=== PATIENT | female | born 1965 | race African-American/Black ===

== ENCOUNTER 2017-05-02 13:39 | Emergency (ER) | payer BC, SELFPAY ==
[2017-05-02 13:48] VITALS: BP 188/104; PULSE 100; RESP 20; TEMP 36.6; O2SAT 97; BMI 29.2
--- NOTE | 2017-05-02 14:11 | HMH.EDUTC ---
[facility] [place] Impression: Elevated blood pressure reading Disposition: Home, Self-Care Condition on Discharge: Good Instructions: Hypertension (Alternative Therapy), High Blood Pressure (Hypertension) (Alternative Therapy) Additional Instructions: Follow up with family doctor tomorrow as schedules If patient blood pressure increases again and she is having headache, blurred vision, slurred speech or any life threatening complaint or worsening of symptom Go straight to ER Return if needed Referrals: Giovany Burleson MD [Primary Care Provider] - 05/03/17 (Follow up tomorrow as scheduled) Time of Disposition: 14:33 Medical Decision Making Vital Signs: 05/02/17 13:48 Temperature 97.8 F Temperature Source Temporal Artery Scan Pulse Rate [Right] 100 H Respiratory Rate 20 Blood Pressure [Right Arm] 188/104 Blood Pressure Mean [Right Arm] 132 Blood Pressure Source [Right Arm] Automatic Cuff Blood Pressure Position [Right Arm] Sitting 02 Sat by Pulse Oximetry 97 Oxygen Delivery Method Room Air - Tommie Inquiry Pt receiving controlled substance: No Tommie was queried for this patient: No - Reevaluation(s) Reevaluation #1: Patient state that she is asymptomatic, informed them as long as she was asymptomatic to let family doctor start her on medication and monitor it closely That is she began to have symptoms or blood pressure continued to rise to bring her back or go straight to ER BP lowering at this time 174/99 still denies any complaints [facility] [place] - General Stated complaint: poss high blood pressure Mode of Arrival: Ambulatory Source of Information: Patient Limitations: No Limitations Description of Symptoms (Recalled from Triage Doc. by RN): FEELS BP MAY BE ELEVATED, APPT WITH MD TOMORROW FOR BP EVAL HEENT Symptoms (Recalled from RN notes): No Resp Symptoms (Recalled from RN notes): No Skin Symptoms (Recalled from RN notes): No MS Symptoms (Recalled from RN notes): No Functional Status (Recalled from RN notes): N - History of Present Illness Provider Complaint: Family state that they have been checking her blood pressure at home States that they have noticed that the last few times they have checked it her blood pressure has been high State that they checked it earlier today with a wrist blood pressure cuff and it was 194/120 so they brought her in to get her checked - Related Data Previous Rx's Medication Instructions Recorded donepezil 5 mg tablet 5 mg PO QHS 30 Days #30 tab 04/28/17 levetiracetam ER 500 mg 1,500 mg PO QHS 30 Days #90 tab 04/28/17 tablet,extended release 24 hr Allergies Allergy/AdvReac Type Severity Reaction Status Date / Time PEACHES Allergy Intermediate I-RASH Uncoded 04/26/17 16:43 - Worker's Comp Is this a Worker's Comp case?: No [facility] History I have reviewed the patient's past medical history: Yes Medical History: Reports:: Dementia, Diabetes Mellitus Type 2, Hypertension, Seizures Other Surgeries: Yes: Hysterectomy-Partial - *Social History Smoking Status: Never smoker Alcohol Intake: never Substance Use Type: denies use Occupational Status: unemployed Housing: house Household Members: family - Psychiatric History Expresses thoughts of harming self/others: None Suicide Plan Description: No Plan *Family Hx:: Cancer ROS Obtained: Yes All systems reviewed & no additional complaints - Cardiovascular Cardiovascular: Denies chest pain, Denies dyspnea, Denies edema, Denies palpitations - Respiratory Respiratory: No dyspnea Physical Exam - General General appearance: alert, in no apparent distress - ENT ENT exam: Present: normal exam, normal oropharynx, mucous membranes moist, TM's normal bilaterally, normal external ear exam - Respiratory Respiratory exam: Present: normal lung sounds bilaterally. Absent: respiratory distress - Cardiovascular Cardiovascular exam: Present: regular rate, normal rhythm. Absent: JVD - Abdominal Exam
--- NOTE | 2017-05-02 14:20 | ED_ITS ---
[facility] – [place] Clinical Impression: Elevated blood pressure reading Disposition: Home, Self-Care Condition on Discharge: Good Instructions: Hypertension (Alternative Therapy), High Blood Pressure ( Hypertension) (Alternative Therapy) Additional Instructions: Follow up with family doctor tomorrow as schedules If patient blood pressure increases again and she is having headache, blurred vision, slurred speech or any life threatening complaint or worsening of symptom Go straight to ER Return if needed Referrals: Giovany Burleson MD [Primary Care Provider] - 05/03/17 (Follow up tomorrow as scheduled) Time of Disposition: 14:33 Medical Decision Making Vital Signs: 05/02/17 13:48 Temperature 97.8 F Temperature Source Temporal Artery Scan Pulse Rate [Right] 100 H Respiratory Rate 20 Blood Pressure [Right Arm] 188/104 Blood Pressure Mean [Right Arm] 132 Blood Pressure Source [Right Arm] Automatic Cuff Blood Pressure Position [Right Arm] Sitting 02 Sat by Pulse Oximetry 97 Oxygen Delivery Method Room Air - Tommie Inquiry Pt receiving controlled substance: No Tommie was queried for this patient: No - Reevaluation(s) Reevaluation #1: Patient state that she is asymptomatic, informed them as long as she was asymptomatic to let family doctor start her on medication and monitor it closely That is she began to have symptoms or blood pressure continued to rise to bring her back or go straight to ER BP lowering at this time 174/99 still denies any complaints [facility] [place]PI - General Stated complaint: poss high blood pressure Mode of Arrival: Ambulatory Source of Information: Patient Limitations: No Limitations Description of Symptoms (Recalled from Triage Doc. by RN): FEELS BP MAY BE ELEVATED, APPT WITH MD TOMORROW FOR BP EVAL HEENT Symptoms (Recalled from RN notes): No Resp Symptoms (Recalled from RN notes): No Skin Symptoms (Recalled from RN notes): No MS Symptoms (Recalled from RN notes): No Functional Status (Recalled from RN notes): N - History of Present Illness Provider Complaint: Family state that they have been checking her blood pressure at home States that they have noticed that the last few times they have checked it her blood pressure has been high State that they checked it earlier today with a wrist blood pressure cuff and it was 194/120 so they brought her in to get her checked - Related Data Previous Rx's Medication Instructions Recorded donepezil 5 mg tablet 5 mg PO QHS 30 Days #30 tab 04/28/17 levetiracetam ER 500 mg 1,500 mg PO QHS 30 Days #90 tab 04/28/17 tablet,extended release 24 hr Allergies Allergy/AdvReac Type Severity Reaction Status Date / Time PEACHES Allergy Intermediate I-RASH Uncoded 04/26/17 16:43 - Worker's Comp Is this a Worker's Comp case?: No [facility] History I have reviewed the patient's past medical history: Yes Medical History: Reports:: Dementia, Diabetes Mellitus Type 2, Hypertension, Seizures Other Surgeries: Yes: Hysterectomy-Partial - *Social History Smoking Status: Never smoker Alcohol Intake: never Substance Use Type: denies use Occupational Status: unemployed Housing: house Household Members: family - Psychiatric History Expresses thoughts of harming self/others: None Suicide Plan Description: No Plan *Family Hx:: Cancer ROS Obtained: Yes All systems reviewed & no
[2017-05-02 14:26] VITALS: BP 178/99; PULSE 78; RESP 20; TEMP 36.8; O2SAT 99
== END 2017-05-02 14:34 | disposition home or self-care (01) ==
PROVIDERS: Emergency Provider Nurse Practitioner; PCP Family Medicine
DX: I10 Essential (primary) hypertension (principal); E11.9 Type 2 diabetes mellitus without complications; R56.9 Unspecified convulsions; G30.9 Alzheimer's disease, unspecified; F02.80 Dementia in other diseases classified elsewhere, unspecified severity, without behavioral disturbance, psychotic disturbance, mood disturbance, and anxiety
CPT/HCPCS: 99202

== ENCOUNTER → 2018-12-12 15:45 | Outpatient (CLI) | payer BC, SELFPAY ==
--- NOTE | 2018-12-12 16:12 | XR_ITS ---
PROCEDURE: XR CHEST 2V CLINICAL HISTORY: FAMILY H/O CORONARY ARTERY DISEASE COMPARISON: CXR CHEST(2 VIEWS-NOT PORTABLE) from 08/04/2016 FINDINGS: The cardiomediastinal silhouette and pulmonary vascularity are within normal limits. There is a stable benign 3 millimeter right midlung calcified granuloma. The remainder of the lung goetz are clear. There is no pleural effusion or pneumothorax. No acute bony abnormalities. IMPRESSION: No change and no acute process. Dictated by: Navid Hu 12/12/2018 16:36 Electronically signed by Navid Hu in [place] 12/12/2018 16:41
--- NOTE | 2018-12-12 16:35 | ECG_ITS ---
APPROVED REPORT Exam: Resting ECG HR:111 bpm ECG Measurements Heart Rate 111 AXES [place] 140 P 20 QRSd 76 QRS -8 QT 318 T 23 QTc 432 <Conclusion> Sinus tachycardia Left atrial abnormality Left ventricular hypertrophy Nonspecific T wave abnormality Abnormal ECG Electronically signed by : Tomasz Ceja, 12/13/2018 20:04:50
[2018-12-12 16:36] LABS: Basophils # 0.1 K/mm3 (0-0.2); Basophils % 0.8 % (0.1-2.0); Eosinophils # 0.2 K/mm3 (0.0-0.4); Eosinophils % 3.5 % (0.1-12.0); Hematocrit 47.4 % (37.0-47.0); Hemoglobin 14.4 g/dL (12.2-16.2); Lymphocytes # 3.1 K/mm3 (0.7-4.5); Lymphocytes % 46.5 % (10-50); Mean Corpuscular HGB Conc 30.3 g/dL (31.8-35.4); Mean Corpuscular Hemoglobin 25.5 pg (27.0-31.2); Mean Corpuscular Volume 84.2 fl (81-99); Mean Platelet Volume 7.5 fl (7.4-10.4); Monocytes # 0.3 K/mm3 (0.1-1.0); Monocytes % 3.9 % (1.7-9.3); Neutrophils % 45.3 % (37.0-80.0); Platelet Count 434 K/mm3 (142-424); Red Blood Count 5.63 M/mm3 (4.20-5.40); Red Cell Distribution Width 14.6 % (11.5-17.5); White Blood Count 6.6 K/mm3 (4.8-10.8)
[2018-12-12 16:41] LABS: Activated Partial Thrombo Time 27.8 seconds (23.6-34.0); INR 1.01 (0.9-1.1); Prothrombin Time 10.5 seconds (9.4-11.8)
[2018-12-12 17:48] LABS: Alanine Aminotransferase 15 U/L (12-78); Albumin Level 3.7 gm/dL (3.4-5.0); Albumin/Globulin Ratio 0.9 (1.1-1.8); Alkaline Phosphatase 106 U/L (46-116); Anion Gap 12.3 mEq/L (5-15); Aspartate Amino Transferase 11 U/L (15-37); Bilirubin,Total 0.6 mg/dL (0.2-1.0); Blood Urea Nitrogen 13 mg/dL (7-18); Calcium 9.3 mg/dL (8.5-10.1); Carbon Dioxide 30 mmol/L (21.0-32.0); Chloride 99 mmol/L (98-107); Creatinine,Serum 0.82 mg/dL (0.55-1.02); Estimated Glomerular Filt Rate 72 ml/min (>60); GFR (African American) 88 ML/MIN (>60); Potassium 4.3 mmoL/L (3.5-5.1); Sodium 137 mmol/L (136-145); Thyroid Stimulating Hormone 1.44 uIU/ml (0.358-3.740); Total Protein,Serum 7.7 gm/dL (6.4-8.2)
[2018-12-12 18:36] LABS: Glucose 406 mg/dL (74-106)
== END ==
LOC: LAB 15:49 → RAD 16:08
PROVIDERS: PCP Nurse Practitioner Family; Visit Provider Nurse Practitioner Family
DX: Z01.818 Encounter for other preprocedural examination (principal); R10.32 Left lower quadrant pain
CPT/HCPCS: 36415; 71046; 80053; 84443; 85025; 85610; 85730; 93005

== ENCOUNTER → 2018-12-16 12:52 | Outpatient (CLI) | payer BC, SELFPAY ==
--- NOTE | 2018-12-16 13:04 | CT_ITS ---
PROCEDURE: CT ABDOMEN PELVIS W CON CLINICAL HISTORY: LLQ PAIN,DIARRHEA,VAGINAL BLEEDING COMPARISON: ABDPELW/O CT ABD PELVIS W/O CONTRAST from 08/05/2015 TECHNIQUE: 75 cc of intravenous contrast. Axial images obtained with sagittal and coronal reformats. All CT scans at the facility use one or more dose reduction, viz: automated exposure control, ma/kV adjustment per patient size (including targeted exams where dose is matched to indication, i.e. head), or iterative reconstruction technique. FINDINGS: Lower lung goetz are unremarkable. Liver, gallbladder, pancreas, spleen and adrenal glands are normal. Kidneys are normal. There is no aortic dilatation. There is incomplete fluid distention of the stomach for adequate evaluation. There is no bowel dilatation, wall thickening, free air or ascites. Appendix is normal. There are clips in the cul-de-sac of the lower pelvis. There is diffuse mild urinary bladder wall thickening. Read the remainder of the pelvis is unremarkable. There is no acute osseous process. IMPRESSION: No acute process. Urinary bladder wall thickening could be from incomplete fluid distention although chronic cystitis is not ruled out. Evidence of lower pelvic surgery. Dictated by: Navid Hu 12/16/2018 13:37 Electronically signed by Navid Hu in [facility] 12/16/2018 13:37
== END ==
PROVIDERS: PCP Nurse Practitioner Family; Visit Provider Nurse Practitioner Family
DX: R10.32 Left lower quadrant pain (principal); R19.7 Diarrhea, unspecified; N93.9 Abnormal uterine and vaginal bleeding, unspecified
CPT/HCPCS: 74177; Q9967

== ENCOUNTER → 2019-02-17 16:20 | Outpatient (CLI) | payer BC, SELFPAY ==
--- NOTE | 2019-02-17 | XR_ITS ---
PROCEDURE: XR CHEST 2V CLINICAL HISTORY: Heart disease, coronary artery disease COMPARISON: CXR CHEST(2 VIEWS-NOT PORTABLE) from 08/04/2016 XR CHEST 2V from 12/12/2018 FINDINGS: The cardiomediastinal silhouette and pulmonary vascularity are within normal limits. The lungs are clear without infiltrates, suspicious nodules, or pleural effusions. No acute bony abnormalities. IMPRESSION: No acute findings. Dictated by: Parrish Whaley MD 02/17/2019 18:16 Electronically signed by Parrish Whaley MD in [facility] 02/17/2019 18:16
== END ==
PROVIDERS: PCP Family Medicine; Visit Provider Nurse Practitioner Family
DX: Z01.818 Encounter for other preprocedural examination (principal)
CPT/HCPCS: 71046

== ENCOUNTER → 2019-08-13 13:33 | Outpatient (CLI) | payer BC, SELFPAY ==
[2019-08-13 13:43] LABS: Microscopic, Urine URINE MICROSCOPIC (MICROSCOPIC)
[2019-08-13 14:38] LABS: Appearance,Urine CLOUDY (Clear); Blood, Urine TRACE-I (Negative); Color,Urine YELLOW (Yellow); Glucose,Urine (UA) Negative (Negative); Ketones,Urine 1+ (Negative); Leukocyte Esterase,Urine Negative (Negative); Nitrate,Urine Negative (Negative); PH,Urine 5.5 (5.0-8.5); Protein,Urine Negative (Negative); Specific Gravity, Urine >= 1.030 (1.005-1.030); Urobilinogen,Urine 0.2 EU/dl (0.2)
[2019-08-13 14:48] LABS: Bacteria,Urine 3+ /lpf; Bilirubin,Urine Negative (Negative); RBC,Urine Occasional #/hpf (0-3); Squamous Epithelial Cell,Urine Occasional #/hpf (0-5); WBC,Urine Occasional #/hpf (0-3)
== END ==
PROVIDERS: Visit Provider Internal Medicine Adolescent Medicine
DX: R30.0 Dysuria (principal)
CPT/HCPCS: 81001; 87086

== ENCOUNTER 2019-12-31 16:12 | Emergency (ER) | payer BC, MEDICAID, SELFPAY ==
[2019-12-31 16:12] VITALS: BP 113/73; PULSE 74; RESP 18; TEMP 37.3; O2SAT 96; BMI 25.7
--- NOTE | 2019-12-31 16:15 | CT_ITS ---
PROCEDURE: CT HEAD/BRAIN WO CON CLINICAL INDICATION: ams Altered mental status, altered level of consciousness, confusion, disorientation COMPARISON: CT CT Head WO from 12/18/2015 TECHNIQUE: Axial images obtained. All CT scans at the facility use one or more dose reduction, viz: automated exposure control, ma/kV adjustment per patient size (including targeted exams where dose is matched to indication, i.e. head), or iterative reconstruction technique. FINDINGS: No midline shift, mass effect, intracranial hemorrhage, hydrocephalus, or extra-axial fluid collection is evident. There is generalized atrophy with hypoattenuation of the periventricular white matter consistent with microangiopathic changes. Small area of decreased attenuation is present in the posterior limb of the right internal capsule and may be due to an old lacunar infarction. The calvarium has an unremarkable appearance. No mastoid effusion. No sinus air-fluid level. IMPRESSION: Cerebral atrophy which has progressed since the previous exam. No acute finding Dictated by: Parrish Whaley MD 01/01/2020 05:20 Parrish Whaley MD in [facility] 01/01/2020 05:20
--- NOTE | 2019-12-31 16:15 | XR_ITS ---
PROCEDURE: XR CHEST PORTABLE CLINICAL HISTORY: weakness COMPARISON: CR CXR CHEST(2 VIEWS-NOT PORTABLE) from 08/04/2016 CR XR CHEST 2V from 12/12/2018 DX XR CHEST 2V from 02/17/2019 FINDINGS: The cardiomediastinal silhouette and pulmonary vascularity are within normal limits. There are low lung volumes with vascular crowding in the lung bases.. No lobar consolidation or collapse. No acute bony abnormalities. IMPRESSION: No acute findings. Dictated by: Parrish Whaley MD 01/01/2020 05:47 Parrish Whaley MD in [facility] 01/01/2020 05:47
--- NOTE | 2019-12-31 16:28 | HMH.EDGENADL ---
ED Disposition Clinical Impression: Cystitis Disposition: Xfer Intermediate Care Fac Condition on Discharge: Good Additional Instructions: Return immediately if any fever/chills intractable nausea/vomiting, mental status changes, generalized malaise, or any other new concerning symptoms. Please take antibiotic as prescribed, Keflex in 250 mg 4 times daily for 5 days. Urine culture results pending and if any need for antibiotic reconciliation you will be contacted. Prescriptions: cephALEXin [cephALEXin 250mg capsule] 250 mg PO Q6H 5 Days #20 cap Transmission Status: Pending to [facility] Referrals: Giovany Burleson MD [Primary Care Provider] - - Critical Care Critical Care Time: No Attestation: On 12/31/19, the high probability of a clinically significant, sudden or life threatening deterioration of the following system(s) required my full and direct attention, intervention and personal management. The time I documented below is in addition to time spent performing reported procedures but includes the following listed in this critical care notation. Medical Decision Making - Medical Records Medical records reviewed: Yes: I reviewed the patient's medical records. - Tommie Inquiry Pt receiving controlled substance: No Vital Signs: 12/31/19 16:12 12/31/19 17:17 Temperature 99.1 F Temperature Source Oral Pulse Rate [Right] 74 83 Respiratory Rate 18 Blood Pressure [Right Arm] 113/73 133/89 Blood Pressure Mean [Right Arm] 86 103 Blood Pressure Source [Right Arm] Automatic Cuff Blood Pressure Position [Right Arm] Sitting 02 Sat by Pulse Oximetry 96 97 Oxygen Delivery Method Room Air - Lab Data Lab Results 12/31/19 16:47: WBC 11.4 H, RBC 5.34, Hgb 13.5, Hct 44.0, MCV 82.3, MCH 25.4 L, MCHC 30.8 L, RDW 15.0, Plt Count 405, MPV 7.4, Neut % (Auto) 76.9, Lymph % (Auto) 16.2, [place] % (Auto) 4.9, Eos % (Auto) 1.7, Baso % (Auto) 0.4, Neut # (Auto) 8.8 H, Lymph # (Auto) 1.8, [place] # (Auto) 0.6, Eos # (Auto) 0.2, Baso # (Auto) 0.1 12/31/19 16:47: Sodium 137, Potassium 4.8, Chloride 103, Carbon Dioxide 28, Anion Gap 10.8, BUN 20 H, Creatinine 0.60, Estimated Creat Clear 112, Estimated GFR 103, Est GFR ( Amer) 125, Glucose 185 H, Calcium 8.9, Total Bilirubin 0.5, AST 34, ALT 12, Alkaline Phosphatase 72, Total Protein 6.9, Albumin 3.8, Globulin 3.1, Albumin/Globulin Ratio 1.2 12/31/19 16:47: Urine Color Yellow, Urine Appearance Clear, Urine pH 5.5, Ur Specific [place] >= 1.030, Urine Protein Negative, Urine Glucose (UA) Negative, Urine Ketones 1+, Urine Blood 2+, Urine Nitrate Negative, Urine Bilirubin Negative, Urine Urobilinogen 0.2, Ur Leukocyte Esterase Trace, Urine RBC 10-20, Urine WBC 5-10, Ur Squamous Epith Cells 5-10, Urine Bacteria 1+ 12/31/19 16:47: Troponin I 0.01 12/31/19 16:47: TSH 1.29 Result diagrams: 12/31/19 16:47 12/31/19 16:47 Orders (Tests/Meds): ED MEDICATIONS Generic Name Dose Route Start Last Admin Trade Name Freq PRN Reason Stop Dose Admin Ceftriaxone Sodium 1 gm/ 50 mls @ 100 mls/hr 12/31/19 18:00 12/31/19 18:24 Sodium Chloride IV 01/14/20 17:59 100 mls/hr Q24H CRISTINO Administration Protocol ORDERS Category Date Time Status CT head/brain wo con Stat Cat Scan 12/31/19 16:15 Taken XR chest portable Stat Exams 12/31/19 16:15 Taken Troponin I Q3H Lab 12/31/19 19:45 Ordered Troponin I Q3H Lab 12/31/19 22:45 Ordered Urine Culture Stat Micro 12/31/19 16:47 Received EKG Request [ECG Request by /Nse] Stat Y 12/31/19 16:33 Ordered Medical Decision Narrative: Patient presents to the emergency department with altered mental status. At this time, it sounds like patient went to sleep last night at her baseline but this morning when she woke up she had some waxing and waning mental status changes with more difficulty getting around not quite at her baseline mental status. Daughter states this happened sometimes when she gets urinary tract infe
--- NOTE | 2019-12-31 16:33 | ECG_ITS ---
APPROVED REPORT Exam: Resting ECG HR:81 bpm ECG Measurements Heart Rate 81 AXES AL 172 P 56 QRSd 74 QRS -4 QT 382 T -1 QTc 443 Conclusion Normal sinus rhythm Possible Left atrial enlargement Left ventricular hypertrophy Abnormal ECG Electronically signed by : Tomasz Ceja, 01/01/2020 15:09:32
--- NOTE | 2019-12-31 16:38 | PC.NURSE ---
Pt with rad, v/s delayed.
[2019-12-31 16:39] LABS: Basophils # 0.1 K/mm3 (0-0.2); Basophils % 0.4 % (0.1-2.0); Eosinophils # 0.2 K/mm3 (0.0-0.4); Eosinophils % 1.7 % (0.1-12.0); Hemoglobin 13.5 g/dL (12.2-16.2); Lymphocytes # 1.8 K/mm3 (0.7-4.5); Lymphocytes % 16.2 % (10-50); Mean Corpuscular HGB Conc 30.8 g/dL (31.8-35.4); Mean Corpuscular Hemoglobin 25.4 pg (27.0-31.2); Mean Corpuscular Volume 82.3 fl (81-99); Mean Platelet Volume 7.4 fl (7.4-10.4); Monocytes # 0.6 K/mm3 (0.1-1.0); Monocytes % 4.9 % (1.7-9.3); Neutrophils # 8.8 K/mm3 (1.8-7.8); Neutrophils % 76.9 % (37.0-80.0); Platelet Count 405 K/mm3 (142-424); Red Blood Count 5.34 M/mm3 (4.20-5.40); White Blood Count 11.4 K/mm3 (4.8-10.8)
[2019-12-31 16:40] LABS: Appearance,Urine CLEAR (Clear); Bilirubin,Urine Negative (Negative); Blood, Urine 2+ (Negative); Color,Urine YELLOW (Yellow); Glucose,Urine (UA) Negative (Negative); Ketones,Urine 1+ (Negative); Leukocyte Esterase,Urine TRACE (Negative); Nitrate,Urine Negative (Negative); PH,Urine 5.5 (5.0-8.5); Protein,Urine Negative (Negative); Specific Gravity, Urine >= 1.030 (1.005-1.030); Urobilinogen,Urine 0.2 EU/dl (0.2)
[2019-12-31 16:47] LABS: Chloride 103 mmol/L (98-107); Potassium 4.8 mmoL/L (3.5-5.1); Sodium 137 mmol/L (136-145)
[2019-12-31 16:48] LABS: Microscopic, Urine URINE MICROSCOPIC (MICROSCOPIC)
--- NOTE | 2019-12-31 16:48 | PC.NURSE ---
Pt returned from rad. Family at bedside.
[2019-12-31 16:50] LABS: Alanine Aminotransferase 12 U/L (12-78); Albumin Level 3.8 g/dl (3.5-5.0); Albumin/Globulin Ratio 1.2 (1.1-1.8); Alkaline Phosphatase 72 U/L (38-126); Anion Gap 10.8 mEq/L (5-15); Aspartate Amino Transferase 34 U/L (14-36); Bacteria,Urine 1+ /lpf; Bilirubin,Total 0.5 mg/dl (0.2-1.3); Blood Urea Nitrogen 20 mg/dl (7-17); Carbon Dioxide 28 mmol/L (22.0-30.0); Creatinine Clearance Estimated 112 mL/min (50-200); Estimated Glomerular Filt Rate 103 ml/min (>60); GFR (African American) 125 ML/MIN (>60); Globulin 3.1 g/dL (1.3-3.2); Total Protein,Serum 6.9 g/dl (6.3-8.2)
[2019-12-31 16:51] LABS: Calcium 8.9 mg/dl (8.4-10.2); Glucose 185 mg/dl (74-100)
[2019-12-31 17:02] LABS: Troponin I 0.01 ng/ml (0.00-0.034)
[2019-12-31 17:17] VITALS: BP 133/89; PULSE 83; O2SAT 97
[2019-12-31 18:10] LABS: Thyroid Stimulating Hormone 1.29 uIU/mL (0.465-4.68)
[2019-12-31 19:00] VITALS: BP 140/90; PULSE 80; RESP 17; O2SAT 98
[2019-12-31 19:17] VITALS: BP 140/90; PULSE 76; RESP 16; TEMP 36.7; O2SAT 96
== END 2019-12-31 19:23 ==
PROVIDERS: Emergency Provider Emergency Medicine; PCP Family Medicine
DX: N30.00 Acute cystitis without hematuria (principal); F03.90 Unspecified dementia, unspecified severity, without behavioral disturbance, psychotic disturbance, mood disturbance, and anxiety; F33.1 Major depressive disorder, recurrent, moderate; I10 Essential (primary) hypertension; E11.9 Type 2 diabetes mellitus without complications
CPT/HCPCS: 70450; 71045; 80053; 81001; 84443; 84484; 85025; 87086; 87088; 87186; 93005; 96365; 99284

== ENCOUNTER → 2021-01-01 10:28 | Outpatient (CLI) | payer BC, MEDICAID, SELFPAY ==
[2021-01-01 12:12] LABS: Hemoglobin A1C 7.9 % (4.0-6.0)
== END ==
PROVIDERS: Visit Provider Family Medicine
DX: R73.9 Hyperglycemia, unspecified (principal)
CPT/HCPCS: 83036

== ENCOUNTER → 2022-11-23 18:22 | Outpatient (CLI) | payer BC, MEDICAID, SELFPAY ==
[2022-11-23 19:58] LABS: Chloride 97 mmol/L (98-107); Potassium 4.2 mmoL/L (3.5-5.1); Sodium 130 mmol/L (136-145)
[2022-11-23 20:01] LABS: Anion Gap 13.2 mEq/L (5-15); Blood Urea Nitrogen 4 mg/dl (7-17); Calcium 8.8 mg/dl (8.4-10.2); Carbon Dioxide 24 mmol/L (22.0-30.0); Estimated Glomerular Filt Rate 126 ml/min (>60); GFR (African American) 153 ML/MIN (>60); Glucose 302 mg/dl (74-100)
[2022-11-23 20:08] LABS: Basophils % 0.3 % (0.1-2.0); Eosinophils # 0.2 K/mm3 (0.0-0.4); Eosinophils % 3.1 % (0.1-12.0); Hematocrit 43.9 % (37.0-47.0); Hemoglobin 13.9 g/dL (12.2-16.2); Lymphocytes # 3.9 K/mm3 (0.7-4.5); Lymphocytes % 50.6 % (10-50); Mean Corpuscular HGB Conc 31.6 g/dL (31.8-35.4); Mean Corpuscular Hemoglobin 27.2 pg (27.0-31.2); Mean Corpuscular Volume 86.2 fl (81-99); Mean Platelet Volume 8.2 fl (7.4-10.4); Monocytes # 0.4 K/mm3 (0.1-1.0); Monocytes % 4.8 % (1.7-9.3); Neutrophils # 3.2 K/mm3 (1.8-7.8); Neutrophils % 41.3 % (37.0-80.0); Platelet Count 404 K/mm3 (142-424); Red Blood Count 5.09 M/mm3 (4.20-5.40); Red Cell Distribution Width 14.1 % (11.5-17.5); White Blood Count 7.8 K/mm3 (4.8-10.8)
[2022-11-23 20:25] LABS: MANUAL DIFFERENTIAL MANUAL DIFFERENTIAL (MANUAL DIFF)
[2022-11-23 21:15] LABS: Eosinophils % 2 % (0-3); Lymphocytes % 44 % (10-50); Monocytes % 5 % (2-9); Neutrophils % 49 % (42-76); Platelet Estimate Normal; RBC Morphology Normal; Total Cells Counted 100
== END ==
PROVIDERS: PCP Internal Medicine Adolescent Medicine; Visit Provider Internal Medicine Adolescent Medicine
DX: E03.0 Congenital hypothyroidism with diffuse goiter (principal)
CPT/HCPCS: 80048; 85007; 85025

== ENCOUNTER 2023-03-18 20:25 | Outpatient (CLI) | payer BC, MEDICAID, SELFPAY ==
[2023-03-18 20:49] LABS: Adenovirus,PCR Not Detected (NotDetected); Coronavirus 19, PCR Not Detected (NotDetected); Coronavirus 229E Not Detected (NotDetected); Coronavirus NL63 Not Detected (NotDetected); Coronavirus OC43 Not Detected (NotDetected); Coronovirus HKU1,PCR Not Detected (NotDetected); Human Metapneumovirus Not Detected (NotDetected); Influenza A, PCR Not Detected (NotDetected); Influenza AH1, 2009 Not Detected (NotDetected); Influenza AH1, PCR Not Detected (NotDetected); Influenza AH3,PCR Not Detected (NotDetected); Influenza B, PCR Not Detected (NotDetected); Parainfluenza 1, PCR Not Detected (NotDetected); Parainfluenza 2, PCR Not Detected (NotDetected); Parainfluenza 3, PCR Not Detected (NotDetected); Parainfluenza 4, PCR Not Detected (NotDetected); Respiratory Syncytial Virus Not Detected (NotDetected); Rhinovirus/Enterovirus Not Detected (NotDetected)
== END 2023-03-18 23:59 ==
LOC: LAB.DROPOF 20:26
PROVIDERS: PCP Nurse Practitioner Family; Visit Provider Nurse Practitioner Family
DX: R09.89 Other specified symptoms and signs involving the circulatory and respiratory systems (principal); R05.9 Cough, unspecified
CPT/HCPCS: 87581; 87632; 87635; 87798

== ENCOUNTER 2023-12-19 14:14 | Inpatient (IN) | payer BC, MEDICAID, SELFPAY ==
[2023-12-19] VITALS (11 sets, daily range): BP systolic 143–186; BP diastolic 88–120; PULSE 75–148; RESP 16–24; TEMP 36.6–37.9; O2SAT 95–100; BMI 34.3; BMI 28.1
--- NOTE | 2023-12-19 14:16 | CT_ITS ---
PROCEDURE INFORMATION: Exam: CT Head Without Contrast Exam date and time: 12/19/2023 2:51 PM Age: 58 years old Clinical indication: Altered mental status/memory loss; Other: AMS; Additional info: AMS, unresponsive TECHNIQUE: Imaging protocol: Computed tomography of the head without contrast. Radiation optimization: All CT scans at this facility use at least one of these dose optimization techniques: automated exposure control; mA and/or kV adjustment per patient size (includes targeted exams where dose is matched to clinical indication); or iterative reconstruction. COMPARISON: No relevant prior studies available. Review is made in conjunction with report of the 12/31/2019 CT brain without contrast. FINDINGS: Brain: Marked intracerebral volume loss. Findings disproportionate for patient's age. Cerebral ventricles: Moderate diffuse ventricular enlargement. Similar findings were described on the previous report. Cannot determine interim progression without direct comparative review. Paranasal sinuses: Visualized sinuses are unremarkable. No fluid levels. Mastoid air cells: Visualized mastoid air cells are well aerated. Bones: Unremarkable. No acute fracture. Soft tissues: Unremarkable. IMPRESSION: 1. Marked intracerebral volume loss. Findings disproportionate for patient's age. 2. No evidence of acute intracranial abnormality. 3. Consider follow-up with magnetic resonance imaging.
--- NOTE | 2023-12-19 14:16 | XR_ITS ---
PROCEDURE INFORMATION: Exam: XR Chest Exam date and time: 12/19/2023 2:54 PM Age: 58 years old Clinical indication: Other: AMS TECHNIQUE: Imaging protocol: Radiologic exam of the chest. Views: 1 view. COMPARISON: CR XR CHEST PORTABLE 12/31/2019 4:50 PM FINDINGS: Lungs: Unremarkable. No consolidation. Pleural spaces: Unremarkable. No pleural effusion. No pneumothorax. Heart/Mediastinum: Unremarkable. No cardiomegaly. Bones/joints: Unremarkable. IMPRESSION: No acute findings.
--- NOTE | 2023-12-19 14:19 | ECG_ITS ---
APPROVED REPORT Exam: Resting ECG HR:144 bpm ECG Measurements Heart Rate 144 AXES [place] 111 P 44 QRSd 75 QRS -3 QT 331 T 53 QTc 414 Conclusion SINUS TACHYCARDIA WITH SHORT OH INTERVAL, POSSIBLE ATRIAL FLUTTER MODERATE VOLTAGE CRITERIA FOR LVH, CONSIDER NORMAL VARIANT [MEETS CRITERIA IN ONE OF: R(aVL), S(V1), R(V5), R(V5/V6)+S(V1)] NONSPECIFIC ST & T-WAVE ABNORMALITY Electronically signed by : ASA OAKLEY, 12/19/2023 16:28:39
--- NOTE | 2023-12-19 14:20 | HMH.EDGENADL ---
Discharge Plan Disposition Patient Disposition: Admitted Prescriptions Prescriptions: No Action acetaminophen [Tylenol Extra Strength] 500 mg tablet 500 mg PO Q6H PRN Nuedexta 20-10 mg capsule 1 cap PO Q12H valproic acid (as sodium salt) 250 mg/5 mL solution 500 mg PO BID aripiprazole 2 mg tablet 2 mg PO DAILY diphenhydramine HCl [Benadryl] 25 mg capsule 25 mg PO HS (DME) Contour Next Link Kit See Rx Instructions .ROUTE .MEDSUPPLY Qty: 1 Rx Instructions: As directed (DME) blood sugar diagnostic Strip See Rx Instructions .ROUTE .MEDSUPPLY Qty: 10 Patient Comments: USE DIRECTED 4 TIMES DAILY Rx Instructions: As directed (DME) pen needle, diabetic 32 gauge x /32 needle 1 kit .ROUTE .MEDSUPPLY Qty: 10 Rx Instructions: As directed nitrofurantoin macrocrystal 50 mg capsule 50 mg PO QHS Rx Instructions: must administer with a meal/food estradiol 1 mg tablet 1 mg PO DAILY Rx Instructions: off 1 week; repeat cycle brivaracetam 100 mg tablet 100 mg PO BID Qty: 180 1RF Briviact 10 mg/mL solution 100 mg PO BID Qty: 600 3RF escitalopram oxalate 20 MG tablet 20 mg PO DAILY insulin lispro protamin-lispro 100 unit/mL (75-25) insulin pen See Rx Instructions SQ BID Rx Instructions: 2 units am, 3 units at hsSQ twice a day; Referrals Follow up/Referrals: Tomasz Ceja MD [Primary Care Provider] - See instructions Clinical Impressions Clinical Impression: AMS (altered mental status), Sepsis, Dehydration, Hypernatremia, Hyperglycemia, Starvation ketoacidosis, UTI (urinary tract infection) Instructions Patient Instructions: DI for Altered Mental Status Print Language Print Language: Tajik Discharge ED Provider: Jennifer Luque General Adult HPI <Jennifer Luque DO - Last Filed: 12/19/23 16:00> General Chief complaint: Altered Mental Status Stated complaint: weakness Time Seen by Provider: 12/19/23 14:16 History of Present Illness HPI narrative: This patient is a 58-year-old female with a history of dementia, myoclonus, diabetes with reported baseline nonverbal status presenting to the emergency department for evaluation with concern for worsening in her mental status. According to report call from the nursing facility, family felt the patient was worsened beyond her normal mental status and was more lethargic today, however nursing facility reported that she is at her baseline. EMS noted that the patient was essentially unresponsive en route. They noted a fingerstick glucose in the 400s. They noted that the patient opens her eyes intermittently, but does not make eye contact or follow any sort of commands. Family arrived, including the patient's aunt, son, , and sister. They noted that for the last week now, she has had progressively worsening mental status. They state that typically she is alert enough to be fed by mouth, however she has not been able to eat anything for the last week. They state that they tried to put food in her mouth but it just pours out as if she is forgotten how to swallow. Today, they stated she was very lifeless, which is what prompted them to ask for her to be brought in. They state they have never seen her like this before. They deny any known recent fevers or illnesses and no known recent traumatic injuries. Patient does not contribute to history given mental status. She does have a known DNR in her chart. is POA. Related Data Home Medications ?Medication ?Instructions ?Recorded ?Confirmed escitalopram oxalate 20 mg tablet 20 mg PO DAILY Depression 02/17/19 01/14/21 blood sugar diagnostic #10 ea 07/31/19 01/14/21 blood-glucose meter, wireless #1 ea 07/31/19 01/14/21 (Contour Next Link kit) pen needle, diabetic 32 gauge x #10 ea 07/31/19 01/14/21 nitrofurantoin macrocrystal 50 mg 50 mg PO QHS chronic UTIs 11/02/19 01/14/21 capsule estradiol 1 mg tablet 1 mg PO DAILY hormones 11/09/19 01/14/21 insulin lispro protamine-lispro See Rx Instructions SQ BID DIABETES 01/18/20 01/14/21 100 unit/mL (75-25) subcutaneous pen acetaminophen 500 mg tablet 500 mg PO Q6H PRN 02/29/20 01/14/21 (Tylenol Extra Strength) dextromethorphan 20 mg-quinidine 1 cap PO Q12H 02/29/20 01/14/21 10 mg capsule (Nuedexta) valproic acid (as sodium salt) 250 500 mg PO BID 04/11/20 01/14/21 mg/5 mL oral solution aripiprazole 2 mg tablet 2 mg PO DAILY 05/09/20 01/14/21 diphenhydramine HCl 25 mg capsule 25 mg PO HS 07/11/20 01/14/21 (Benadryl) Previous Rx's ?Medication ?Instructions ?Recorded brivaracetam 100 mg tablet 100 mg PO BID myoclonus #180 tabs 05/20/20 brivaracetam 10 mg/mL oral 100 mg (10 mL) PO BID #600 mL 05/15/22 solution (Briviact) Allergies Allergy/AdvReac Type Severity Reaction Status Date / Time PEACHES Allergy Intermediate I-RASH Uncoded 07/31/19 10:34 PFS <Jennifer Luque DO - Last Filed: 12/19/23 16:00> [facility] Disclaimer: The information contained in this section may have been updated after the patient was seen, as this information can be updated by other users. Social History Smoking Status: Never smoker second hand exposure: No alcohol intake: never counseling provided: none substance use type: denies use current occupational status: disabled Travel in the last 8 weeks: None household members: other housing: skilled nursing number of children: 5 current occupational exposures/hazards: No caffeine: Yes Other Medical History Have you received the Flu Vaccine for this season: No Have you received the Pneumonia Vaccine: Yes <Jennifer Luque DO - Last Filed: 12/19/23 16:00> ROS Obtained: Yes unobtainable due to mental status Physical Exam <Jennifer Luque DO - Last Filed: 12/19/23 16:00> General General appearance: obtunded and obese Comment: Lying in bed with eyes closed unresponsive Head Head exam: atraumatic and normocephalic Eye Eye exam: Present normal appearance and PERRL ENT ENT exam: Present normal oropharynx, mucous membranes dry and normal external ear exam Neck Neck exam: Present normal inspection, full ROM and trachea midline; Absent tenderness Chest Chest inspection: Present normal inspection and symmetric chest wall rise; Absent tenderness Respiratory Respiratory exam: Present normal lung sounds bilaterally; Absent respiratory distress, wheezes, stridor or accessory muscle use Cardiovascular Cardiovascular exam: Present normal rhythm and tachycardia Abdominal Exam Abdominal exam: Present soft; Absent distention, tenderness, guarding or rebound Extremities Exam Extremities exam: Absent edema Neurological Exam Neurological exam: Absent alert Expanded Neurological Exam Coma scale eye opening: None Coma scale motor response: None Coma scale verbal response: None Coma scale total: 3 Skin Skin exam: Present warm and dry <Galileo Black MD - Last Filed: 12/19/23 17:26> Expanded Neurological Exam Coma scale total: 3 Medical Decision Making <Jennifer Luque DO - Last Filed: 12/19/23 16:00> Medical Records Medical records reviewed: Yes I reviewed the patient's medical records. Screening: Per USPSTF and CDC recommendations, given the prevalence of disease in our region, it is our hospital?s policy to screen for HIV and viral Hepatitis for all patients aged 18 and over and those with ongoing risk factors. [place] Inquiry Pt receiving controlled substance: No Vital Signs: 12/19/23 14:14 12/19/23 14:30 12/19/23 15:00 Temperature 100.3 F H Temperature Source Rectal Pulse Rate 142 H 138 H Pulse Rate [Right Radial] 148 H Respiratory Rate 24 22 23 Blood Pressure 168/108 H 150/107 H Blood Pressure [Right Arm] 168/108 H Blood Pressure Mean 120 123 Blood Pressure Mean [Right Arm] 128 02 Sat by Pulse Oximetry 95 98 98 Oxygen Delivery Method Nasal Cannula Nasal Cannula Room Air Oxygen Flow Rate (LPM) 2 2 12/19/23 15:30 12/19/23 16:00 12/19/23 16:30 Temperature Temperature Source Pulse Rate 128 H 132 H 127 H Pulse Rate [Right Radial] Respiratory Rate 21 19 21 Blood Pressure 162/107 H 164/109 H 186/112 H Blood Pressure [Right Arm] Blood Pressure Mean 117 124 119 Blood Pressure Mean [Right Arm] 02 Sat by Pulse Oximetry 100 99 99 Oxygen Delivery Method Nasal Cannula Nasal Cannula Nasal Cannula Oxygen Flow Rate (LPM) 2 2 2 Lab Data Lab results reviewed: Yes I reviewed the patient's lab results. Lab Results 12/19/23 14:15: WBC 16.8 H, RBC 6.50 H, Hgb 17.1 H, Hct 55.5 H, MCV 85.4, MCH 26.3 L, MCHC 30.8 L, RDW 14.9, Plt Count 389, MPV 8.3, Neut % (Auto) 76.4, Lymph % (Auto) 15.1, [place] % (Auto) 6.1, Eos % (Auto) 1.1, Baso % (Auto) 1.3, Neut # (Auto) 12.9 H, Lymph # (Auto) 2.6, [place] # (Auto) 1.0, Eos # (Auto) 0.2, Baso # (Auto) 0.2, Total Counted 100, Neutrophils % (Manual) 73, Lymphocytes % (Manual) 22, Monocytes % (Manual) 4, Eosinophils % (Manual) 1, Platelet Estimate Normal, Hypochromasia 1+, Poikilocytosis 1+, Target Cells 1+, Stomatocytes 1+, PT 11.0, INR 0.98, APTT 26.2, Sodium 153 H*, Potassium 4.2, Chloride 112 H, Carbon Dioxide 27, Anion Gap 18.2 H, BUN 51 H, Creatinine 0.80, Estimated GFR 73, Est GFR ( Amer) 89, Glucose 602 H*, Calcium 10.2, Phosphorus 5.6 H, Magnesium 2.6 H, Total Bilirubin 0.9, AST 21, ALT 23, Alkaline Phosphatase 97, Troponin I 0.01, Total Protein 8.1, Albumin 4.2, Globulin 3.9 H, Albumin/Globulin Ratio 1.1, Lipase 80, TSH 1.14, Thyroxine (T4) 10.2, Acetone Level Small 12/19/23 14:16: VBG pH 7.35, VBG pCO2 45.5, VBG pO2 60.3 H, VBG HCO3 24.7, VBG Total CO2 26.1, VBG O2 Saturation 89.6 H, VBG Base Excess -0.9, VBG Lactic Acid 4.0 H 12/19/23 14:25: Urine Color Yellow, Urine Appearance Clear, Urine pH 5.5, Ur Specific [place] >= 1.030, Urine Protein Trace, Urine Glucose (UA) 3+, Urine Ketones 3+, Urine Blood Negative, Urine Nitrate Positive, Urine Bilirubin 1+ A, Urine Urobilinogen 1.0, Ur Leukocyte Esterase Negative, Urine RBC Occasional, Urine WBC Occasional, Ur Squamous Epith Cells Occasional, Urine Bacteria 3+ 12/19/23 14:15 12/19/23 14:15 Orders (Tests/Meds): ED MEDICATIONS Generic Name Dose Route Start Last Admin Trade Name Freq PRN Reason Stop Dose Admin Vancomycin HCl 2,250 mg/ 250 mls @ 125 mls/hr 12/19/23 15:30 Sodium Chloride IV 12/19/23 17:29 ONCE ONE Lactated Ringer's 1,000 mls @ 999 mls/hr 12/19/23 17:30 Lactated Ringer's 1000 Ml Bag IV 12/19/23 18:30 .Q1H1M CRISTINO Discontinued Medications Generic Name Dose Route Start Last Admin Trade Name Freq PRN Reason Stop Dose Admin Sodium Chloride 1,000 mls @ 999 mls/hr 12/19/23 14:18 12/19/23 15:14 Sod Chlor 0.9% 1000ml Bag IV 12/19/23 15:18 Not Given .Q1H1M ONE Sodium Chloride 1,640 mls @ 820 mls/hr 12/19/23 14:54 12/19/23 15:13 Sod Chlor 0.9% 1000ml Bag 30 ml/kg infuse over 2 hr (1640 ml) 12/19/23 16:53 820 mls/hr IV Administration .Q2H ONE Piperacillin Sod/Tazobactam 50 mls @ 100 mls/hr 12/19/23 15:22 12/19/23 16:21 Sod 3.375 gm/ Sodium Chloride IV 12/19/23 15:51 100 mls/hr ONCE ONE Administration Miscellaneous 1 each 12/19/23 15:30 12/19/23 16:30 Vancomycin Consult Request NOTAPPLIC 01/18/24 15:29 Not Given CONSULT PHARMACY COUNTS INCLUDE 234 BEDS AT THE [facility] ORDERS Category Date Time Status CT head/brain wo con Stat Cat Scan 12/19/23 14:16 Completed CXR --portable [XR chest portable] Stat Exams 12/19/23 14:16 Completed Acetone, Serum (Rapid) Stat Lab 12/19/23 14:15 Completed Ammonia Stat Lab 12/19/23 14:16 Ordered Complete Blood Count Auto Diff Stat Lab 12/19/23 14:15 Completed Comprehensive Metabolic Panel Stat Lab 12/19/23 14:15 Completed Lipase Stat Lab 12/19/23 14:15 Completed MAG [Magnesium] Stat Lab 12/19/23 14:15 Completed PHOS [Phosphorous] Stat Lab 12/19/23 14:15 Completed PT INR [Prothrombin Time INR] Stat Lab 12/19/23 14:15 Completed PTT [Activated Partial Thrombo Time] Stat Lab 12/19/23 14:15 Completed T4 (Thyroxine) Stat Lab 12/19/23 14:15 Completed TSH [Thyroid Stimulating Hormone] Stat Lab 12/19/23 14:15 Completed Trop I [Troponin I] Stat Lab 12/19/23 14:15 Completed Troponin I Q3H Lab 12/19/23 17:30 Ordered Troponin I Q3H Lab 12/19/23 20:30 Ordered UA [Urinalysis and Microscopic] Stat Lab 12/19/23 14:25 Completed Blood Culture Stat Micro 12/19/23 14:25 Received Urine Culture Stat Micro 12/19/23 14:16 Received VBG [Venous Blood Gas] Stat RT 12/19/23 14:16 Completed ECG Data Tracing #1: I reviewed this ECG and interpreted as documented below: Sinus tachycardia with a ventricular to 144 bpm versus atrial flutter, difficult to ascertain given fast rate. No acute ST changes concerning for ischemia. ECG initial impression date: 12/19/23 ECG initial impression time: 14:25 Medical Decision Narrative: In summary, this patient is a 58-year-old female presenting to the Emergency Department for evaluation of worsening mental status and inability to eat anything for the last week. She is also hyperglycemic. Differential diagnoses considered include but are not limited to dehydration, starvation ketosis, DKA, HHS, sepsis. Ruling out the most morbid conditions drove assessment. It should be noted patient's history includes advanced dementia which not at goal therapy. This complicates all aspects of care by increasing patient's risk for morbidity. I reviewed patient's past medical records and noted previous neurology evaluations with last 1 being in 2020. On exam, the patient is critically ill-appearing with significant tachycardia. She appears very clinically dry. She is unresponsive. Workup included broad lab evaluation to evaluate for infectious, metabolic, and cardiac etiologies. CT head, CXR, and EKG also ordered. I independently interpreted CT scan of the head prior to the radiologist read and noted ventricles without acute hemorrhage or space-occupying lesion. Please see their read for final interpretation. Labs were obtained that demonstrated significant hemoconcentration, leukocytosis, sodium of 153, significantly elevated BUN, significant hyperglycemia. Anion gap is borderline elevated. She also has hypomagnesemia and hyperphosphatemia. I feel overall, she is very concentrated given that she has not been eating or drinking anything. Urine is concerning for infection. She was given sepsis bolus of IV fluids and started with broad-spectrum antibiotics. Patient care signed out to the oncoming provider, Dr. Black, pending the remainder of the results and goals of care discussion with family. <Galileo Black MD - Last Filed: 12/19/23 17:26> Vital Signs: 12/19/23 14:14 12/19/23 14:30 12/19/23 15:00 Temperature 100.3 F H Temperature Source Rectal Pulse Rate 142 H 138 H Pulse Rate [Right Radial] 148 H Respiratory Rate 24 22 23 Blood Pressure 168/108 H 150/107 H Blood Pressure [Right Arm] 168/108 H Blood Pressure Mean 120 123 Blood Pressure Mean [Right Arm] 128 02 Sat by Pulse Oximetry 95 98 98 Oxygen Delivery Method Nasal Cannula Nasal Cannula Room Air Oxygen Flow Rate (LPM) 2 2 12/19/23 15:30 12/19/23 16:00 12/19/23 16:30 Temperature Temperature Source Pulse Rate 128 H 132 H 127 H Pulse Rate [Right Radial] Respiratory Rate 21 19 21 Blood Pressure 162/107 H 164/109 H 186/112 H Blood Pressure [Right Arm] Blood Pressure Mean 117 124 119 Blood Pressure Mean [Right Arm] 02 Sat by Pulse Oximetry 100 99 99 Oxygen Delivery Method Nasal Cannula Nasal Cannula Nasal Cannula Oxygen Flow Rate (LPM) 2 2 2 Lab Data Lab results reviewed: Yes I reviewed the patient's lab results. Lab Results 12/19/23 14:15: WBC 16.8 H, RBC 6.50 H, Hgb 17.1 H, Hct 55.5 H, MCV 85.4, MCH 26.3 L, MCHC 30.8 L, RDW 14.9, Plt Count 389, MPV 8.3, Neut % (Auto) 76.4, Lymph % (Auto) 15.1, [place] % (Auto) 6.1, Eos % (Auto) 1.1, Baso % (Auto) 1.3, Neut # (Auto) 12.9 H, Lymph # (Auto) 2.6, [place] # (Auto) 1.0, Eos # (Auto) 0.2, Baso # (Auto) 0.2, Total Counted 100, Neutrophils % (Manual) 73, Lymphocytes % (Manual) 22, Monocytes % (Manual) 4, Eosinophils % (Manual) 1, Platelet Estimate Normal, Hypochromasia 1+, Poikilocytosis 1+, Target Cells 1+, Stomatocytes 1+, PT 11.0, INR 0.98, APTT 26.2, Sodium 153 H*, Potassium 4.2, Chloride 112 H, Carbon Dioxide 27, Anion Gap 18.2 H, BUN 51 H, Creatinine 0.80, Estimated GFR 73, Est GFR ( Amer) 89, Glucose 602 H*, Calcium 10.2, Phosphorus 5.6 H, Magnesium 2.6 H, Total Bilirubin 0.9, AST 21, ALT 23, Alkaline Phosphatase 97, Troponin I 0.01, Total Protein 8.1, Albumin 4.2, Globulin 3.9 H, Albumin/Globulin Ratio 1.1, Lipase 80, TSH 1.14, Thyroxine (T4) 10.2, Acetone Level Small 12/19/23 14:16: VBG pH 7.35, VBG pCO2 45.5, VBG pO2 60.3 H, VBG HCO3 24.7, VBG Total CO2 26.1, VBG O2 Saturation 89.6 H, VBG Base Excess -0.9, VBG Lactic Acid 4.0 H 12/19/23 14:25: Urine Color Yellow, Urine Appearance Clear, Urine pH 5.5, Ur Specific [place] >= 1.030, Urine Protein Trace, Urine Glucose (UA) 3+, Urine Ketones 3+, Urine Blood Negative, Urine Nitrate Positive, Urine Bilirubin 1+ A, Urine Urobilinogen 1.0, Ur Leukocyte Esterase Negative, Urine RBC Occasional, Urine WBC Occasional, Ur Squamous Epith Cells Occasional, Urine Bacteria 3+ Orders (Tests/Meds): ED MEDICATIONS Generic Name Dose Route Start Last Admin Trade Name Freq PRN Reason Stop Dose Admin Vancomycin HCl 2,250 mg/ 250 mls @ 125 mls/hr 12/19/23 15:30 Sodium Chloride IV 12/19/23 17:29 ONCE ONE Lactated Ringer's 1,000 mls @ 999 mls/hr 12/19/23 17:30 Lactated Ringer's 1000 Ml Bag IV 12/19/23 18:30 .Q1H1M CRISTINO Discontinued Medications Generic Name Dose Route Start Last Admin Trade Name Freq PRN Reason Stop Dose Admin Sodium Chloride 1,000 mls @ 999 mls/hr 12/19/23 14:18 12/19/23 15:14 Sod Chlor 0.9% 1000ml Bag IV 12/19/23 15:18 Not Given .Q1H1M ONE Sodium Chloride 1,640 mls @ 820 mls/hr 12/19/23 14:54 12/19/23 15:13 Sod Chlor 0.9% 1000ml Bag 30 ml/kg infuse over 2 hr (1640 ml) 12/19/23 16:53 820 mls/hr IV Administration .Q2H ONE Piperacillin Sod/Tazobactam 50 mls @ 100 mls/hr 12/19/23 15:22 12/19/23 16:21 Sod 3.375 gm/ Sodium Chloride IV 12/19/23 15:51 100 mls/hr ONCE ONE Administration Miscellaneous 1 each 12/19/23 15:30 12/19/23 16:30 Vancomycin Consult Request NOTAPPLIC 01/18/24 15:29 Not Given CONSULT PHARMACY [facility] ORDERS Category Date Time Status CT head/brain wo con Stat Cat Scan 12/19/23 14:16 Completed CXR --portable [XR chest portable] Stat Exams 12/19/23 14:16 Completed Acetone, Serum (Rapid) Stat Lab 12/19/23 14:15 Completed Ammonia Stat Lab 12/19/23 14:16 Ordered Complete Blood Count Auto Diff Stat Lab 12/19/23 14:15 Completed Comprehensive Metabolic Panel Stat Lab 12/19/23 14:15 Completed Lipase Stat Lab 12/19/23 14:15 Completed MAG [Magnesium] Stat Lab 12/19/23 14:15 Completed PHOS [Phosphorous] Stat Lab 12/19/23 14:15 Completed PT INR [Prothrombin Time INR] Stat Lab 12/19/23 14:15 Completed PTT [Activated Partial Thrombo Time] Stat Lab 12/19/23 14:15 Completed T4 (Thyroxine) Stat Lab 12/19/23 14:15 Completed TSH [Thyroid Stimulating Hormone] Stat Lab 12/19/23 14:15 Completed Trop I [Troponin I] Stat Lab 12/19/23 14:15 Completed Troponin I Q3H Lab 12/19/23 17:30 Ordered Troponin I Q3H Lab 12/19/23 20:30 Ordered UA [Urinalysis and Microscopic] Stat Lab 10/06/24 14:25 Completed Blood Culture Stat Micro 12/19/23 14:25 Received Urine Culture Stat Micro 12/19/23 14:16 Received VBG [Venous Blood Gas] Stat RT 12/19/23 14:16 Completed Medical Decision Narrative: In summary, this patient is a 58-year-old female presenting to the Emergency Department for evaluation of worsening mental status and inability to eat anything for the last week. She is also hyperglycemic. Differential diagnoses considered include but are not limited to dehydration, starvation ketosis, DKA, HHS, sepsis. Ruling out the most morbid conditions drove assessment. It should be noted patient's history includes advanced dementia which not at goal therapy. This complicates all aspects of care by increasing patient's risk for morbidity. I reviewed patient's past medical records and noted previous neurology evaluations with last 1 being in 2020. On exam, the patient is critically ill-appearing with significant tachycardia. She appears very clinically dry. She is unresponsive. Workup included broad lab evaluation to evaluate for infectious, metabolic, and cardiac etiologies. CT head, CXR, and EKG also ordered. I independently interpreted CT scan of the head prior to the radiologist read and noted ventricles without acute hemorrhage or space-occupying lesion. Please see their read for final interpretation. Labs were obtained that demonstrated significant hemoconcentration, leukocytosis, sodium of 153, significantly elevated BUN, significant hyperglycemia. Anion gap is borderline elevated. She also has hypomagnesemia and hyperphosphatemia. I feel overall, she is very concentrated given that she has not been eating or drinking anything. Urine is concerning for infection. She was given sepsis bolus of IV fluids and started with broad-spectrum antibiotics. Patient care signed out to the oncoming provider, Dr. Black, pending the remainder of the results and goals of care discussion with family. Reassessment this is Dr. Black I took over from Dr. Luque around 4 PM. I had an extensive discussion with family regarding goals of care essentially the entire family is in agreement that the patient would not have wanted to live in a state like this and believe that she needs to be comfort care however her , Osei, is not ready to make that definitive decision. We discussed hospice we discussed outpatient options going back to the skilled nursing inpatient hospice etc. At the moment they would like to continue to think about these things and would like to come in the hospital for IV fluids and IV antibiotics while they continue to jim over these ideas. An additional liter of IV fluids has been given she is severely dehydrated she is still tachycardic to 1 20-1 30. Diagnosis appears to be severe sepsis dehydration all secondary to urinary tract infection in the setting of chronic progressive decline from dementia. I spoke with hospital medicine agreed to admit the patient for further evaluation management. Critical Care <Jennifer Luque DO - Last Filed: 12/19/23 16:00> Critical Care Time Critical Care Time: No <Galileo Black MD - Last Filed: 12/19/23 17:26> Critical Care Time Critical Care Time: Yes Attestation: On 12/19/23, the high probability of a clinically significant, sudden or life threatening deterioration of the following system(s) required my full and direct attention, intervention and personal management. The time I documented below is in addition to time spent performing reported procedures but includes the following listed in this critical care notation. Total Time Total Critical Care Time: 65
[2023-12-19 14:29] LABS: Basophils # 0.2 K/mm3 (0-0.2); Basophils % 1.3 % (0.1-2.0); Eosinophils # 0.2 K/mm3 (0.0-0.4); Eosinophils % 1.1 % (0.1-12.0); Hematocrit 55.5 % (37.0-47.0); Hemoglobin 17.1 g/dL (12.2-16.2); Lymphocytes # 2.6 K/mm3 (0.7-4.5); Lymphocytes % 15.1 % (10-50); Mean Corpuscular HGB Conc 30.8 g/dL (31.8-35.4); Mean Corpuscular Hemoglobin 26.3 pg (27.0-31.2); Mean Corpuscular Volume 85.4 fl (81-99); Mean Platelet Volume 8.3 fl (7.4-10.4); Monocytes % 6.1 % (1.7-9.3); Neutrophils # 12.9 K/mm3 (1.8-7.8); Neutrophils % 76.4 % (37.0-80.0); Platelet Count 389 K/mm3 (142-424); Red Cell Distribution Width 14.9 % (11.5-17.5); White Blood Count 16.8 K/mm3 (4.8-10.8)
--- NOTE | 2023-12-19 14:30 | PC.NURSE ---
Finger Blood Sugar is 498.
[2023-12-19 14:31] LABS: Albumin Level 4.2 g/dl (3.5-5.0); Chloride 112 mmol/L (98-107)
[2023-12-19 14:32] LABS: Microscopic, Urine URINE MICROSCOPIC (MICROSCOPIC)
[2023-12-19 14:32] LABS: MANUAL DIFFERENTIAL MANUAL DIFFERENTIAL (MANUAL DIFF); Potassium 4.2 mmoL/L (3.5-5.1)
[2023-12-19 14:34] LABS: Alanine Aminotransferase 23 U/L (12-78); Albumin/Globulin Ratio 1.1 (1.1-1.8); Alkaline Phosphatase 97 U/L (38-126); Anion Gap 18.2 mEq/L (5-15); Aspartate Amino Transferase 21 U/L (14-36); Bilirubin,Total 0.9 mg/dl (0.2-1.3); Blood Urea Nitrogen 51 mg/dl (7-17); Carbon Dioxide 27 mmol/L (22.0-30.0); Estimated Glomerular Filt Rate 73 ml/min (>60); GFR (African American) 89 ML/MIN (>60); Globulin 3.9 g/dL (1.3-3.2); Lipase 80 U/L (23-300); Total Protein,Serum 8.1 g/dl (6.3-8.2)
[2023-12-19 14:35] LABS: Calcium 10.2 mg/dl (8.4-10.2); Magnesium 2.6 mg/dl (1.6-2.3); Phosphorous 5.6 mg/dl (2.5-4.5)
[2023-12-19 14:37] LABS: VBG Base Excess -0.9 mmol/L (-2.4-2.3); VBG HCO3 24.7 mmol/L (23-30); VBG Oxygen Saturation 89.6 % (50-70); VBG PCO2 45.5 mmol/L (35-51); VBG PH 7.35 mmol/L (7.31-7.41); VBG PO2 60.3 mmol/L (28-40); VBG Total CO2 26.1 mmol/L (23-27)
[2023-12-19 14:37] LABS: Activated Partial Thrombo Time 26.2 seconds (22.8-30.6); INR 0.98 (0.9-1.1)
[2023-12-19 14:38] LABS: Glucose 602 mg/dl (74-100); Sodium 153 mmol/L (136-145)
[2023-12-19 14:51] LABS: Troponin I 0.01 ng/ml (0.00-0.034)
[2023-12-19 14:52] LABS: T4 (Thyroxine) 10.2 ug/dl (5.53-11.0)
[2023-12-19 14:56] LABS: Appearance,Urine CLEAR (Clear); Blood, Urine Negative (Negative); Color,Urine YELLOW (Yellow); Glucose,Urine (UA) 3+ (Negative); Ketones,Urine 3+ (Negative); Leukocyte Esterase,Urine Negative (Negative); Nitrate,Urine POSITIVE (Negative); PH,Urine 5.5 (5.0-8.5); Protein,Urine TRACE (Negative); Specific Gravity, Urine >= 1.030 (1.005-1.030)
[2023-12-19 14:57] LABS: Eosinophils % 1 % (0-3); Lymphocytes % 22 % (10-50); Monocytes % 4 % (2-9); Neutrophils % 73 % (42-76); Total Cells Counted 100
[2023-12-19 14:58] LABS: Hypochromasia 1+; Platelet Estimate Normal; Poikilocytosis 1+; Stomatocytes 1+; Target Cells 1+
[2023-12-19 15:01] LABS: Bilirubin,Urine 1+ (Negative)
[2023-12-19 15:05] LABS: Thyroid Stimulating Hormone 1.14 uIU/mL (0.465-4.68)
[2023-12-19] MEDS: 0.9 % SODIUM CHLORIDE 1000ML 1,640 ML 820 ML IV (15:13)
--- NOTE | 2023-12-19 15:47 | PC.NURSE ---
DR BURTON AT BEDSIDE TO UPDATE FAMILY
[2023-12-19 15:58] LABS: Bacteria,Urine 3+ /lpf; RBC,Urine Occasional #/hpf (0-3); Squamous Epithelial Cell,Urine Occasional #/hpf (0-5); WBC,Urine Occasional #/hpf (0-3)
[2023-12-19] MEDS: PIPERACILLIN/TAZO 3.375 GM in 0.9 % SODIUM CHLORIDE 50 ML IV (16:21)
[2023-12-19 16:49] LABS: Acetone, Serum (Rapid) Small (None Detect)
--- NOTE | 2023-12-19 17:21 | PC.NURSE ---
DR BURTON SPEAKING WITH HOSPITALIST
--- NOTE | 2023-12-19 17:24 | PC.NURSE ---
[facility] NOTIFIED OF ADMISSION
--- NOTE | 2023-12-19 17:41 | PC.NURSE ---
called report to thu mcrae on 2nd floor and answered all questions
[2023-12-19] MEDS: VANCOMYCIN HCL 2,250 MG in 0.9 % SODIUM CHLORIDE 250 ML 125 MG IV (18:24)
[2023-12-19] MEDS: SODIUM CHLORIDE 0.45 % 1,000 ML 100 ML IV (18:25)
[2023-12-19 18:39] LABS: Reflex Lactic Add Lactic Reflex
[2023-12-19 18:43] LABS: Ammonia < 9 umol/L (9-30)
[2023-12-19 18:56] LABS: Troponin I 0.02 ng/ml (0.00-0.034)
--- NOTE | 2023-12-19 20:19 | EXP.HP ---
History of Present Illness *Admission Date: 12/19/23 *Reason for visit:: decreased PO intake, less responsive *History of present illness: Ms. Betancourt is 58-year-old female with history of early onset Alzheimer's dementia, myoclonus, diabetes, long-term resident at [facility] for over 4 years. She presented to the ER because of concern for worsening mental status, decreased p.o. intake. She reportedly has not eaten anything or taken any p.o. liquids in over 2 days. Family concerned that patient's mental status is different. More lethargic. EMS noted that she was unresponsive and route. Glucose initially on evaluation by EMS elevated greater than 400. Would open eyes spontaneously but no meaningful eye contact. Not following commands. No verbal response. On workup in the ER, patient meeting sepsis criteria with tachycardia, gross lab abnormalities with hypernatremia, leukocytosis. Urine grossly abnormal concerning for UTI. Medicine consulted for admission for sepsis, dehydration, hyperglycemia secondary to UTI. After arrival to the floor. Case discussed with (Osei) at bedside. Patient made DNR. States that she was diagnosed approximately 6 years ago with early onset Alzheimer's. Her CT on arrival to the ER shows severe loss of brain volume and prominent sulci. Findings grossly abnormal for age. Discussed with her progression. States he understands that her dementia will progress. He was counseled by neurology years ago that she would eventually forget how to eat. Expressed concern that she may be at this point. Discussed briefly the thought of hospice pending her response to treatment. States he would like to think about this and is open to considering it. Denies any known shortness of breath, tremor, mago fever. States she just has been less responsive and not eating and this concerned him. [facility] Disclaimer: The information contained in this section may have been updated after the patient was seen, as this information can be updated by other users. Medical History Diabetes Depression Epileptic seizures Dementia Family History Other Depression Social History Smoking Status: Never smoker second hand exposure: No alcohol intake: never counseling provided: none substance use type: denies use current occupational status: disabled Travel in the last 8 weeks: None household members: other housing: skilled nursing number of children: 5 current occupational exposures/hazards: No caffeine: Yes Other Medical History Have you received the Flu Vaccine for this season: No Have you received the Pneumonia Vaccine: No Review of Systems Review of Systems Review of systems (narrative): reviewed from at bedside, unable to obtain from patient Meds Home Medications and Allergies Home Medications ?Medication ?Instructions ?Recorded ?Confirmed ?Type escitalopram oxalate 20 mg tablet 20 mg PO DAILY Depression 02/17/19 01/14/21 History blood sugar diagnostic #10 ea 07/31/19 01/14/21 History blood-glucose meter, wireless #1 ea 07/31/19 01/14/21 History (Contour Next Link kit) pen needle, diabetic 32 gauge x #10 ea 07/31/19 01/14/21 History nitrofurantoin macrocrystal 50 mg 50 mg PO QHS chronic UTIs 11/02/19 01/14/21 History capsule estradiol 1 mg tablet 1 mg PO DAILY hormones 11/09/19 01/14/21 History insulin lispro protamine-lispro See Rx Instructions SQ BID DIABETES 01/18/20 01/14/21 History 100 unit/mL (75-25) subcutaneous pen acetaminophen 500 mg tablet 500 mg PO Q6H PRN 02/29/20 01/14/21 History (Tylenol Extra Strength) dextromethorphan 20 mg-quinidine 1 cap PO Q12H 02/29/20 01/14/21 History 10 mg capsule (Nuedexta) valproic acid (as sodium salt) 250 500 mg PO BID 04/11/20 01/14/21 History mg/5 mL oral solution aripiprazole 2 mg tablet 2 mg PO DAILY 05/09/20 01/14/21 History brivaracetam 100 mg tablet 100 mg PO BID myoclonus #180 tabs 05/20/20 01/14/21 Rx diphenhydramine HCl 25 mg capsule 25 mg PO HS 07/11/20 01/14/21 History (Benadryl) brivaracetam 10 mg/mL oral 100 mg (10 mL) PO BID #600 mL 05/15/22 Rx solution (Briviact) New Prescriptions to Start Prescriptions: Allergies Allergy/AdvReac Type Severity Reaction Status Date / Time PEACHES Allergy Intermediate I-RASH Uncoded 07/31/19 10:34 Exam Data for Last 24 hours Vital signs and Labs for Last 24 Hours: Temp Pulse Resp BP Pulse Ox O2 Del Method O2 Flow Rate 97.8 F 135 H 20 158/120 H 99 Nasal Cannula 2 12/19/23 18:28 12/19/23 18:28 12/19/23 18:28 12/19/23 18:28 12/19/23 18:28 12/19/23 18:52 12/19/23 18:52 Laboratory Results - last 24 hr 12/19/23 14:15: WBC 16.8 H, RBC 6.50 H, Hgb 17.1 H, Hct 55.5 H, MCV 85.4, MCH 26.3 L, MCHC 30.8 L, RDW 14.9, Plt Count 389, MPV 8.3, Neut % (Auto) 76.4, Lymph % (Auto) 15.1, [place] % (Auto) 6.1, Eos % (Auto) 1.1, Baso % (Auto) 1.3, Neut # (Auto) 12.9 H, Lymph # (Auto) 2.6, [place] # (Auto) 1.0, Eos # (Auto) 0.2, Baso # (Auto) 0.2, Total Counted 100, Neutrophils % (Manual) 73, Lymphocytes % (Manual) 22, Monocytes % (Manual) 4, Eosinophils % (Manual) 1, Platelet Estimate Normal, Hypochromasia 1+, Poikilocytosis 1+, Target Cells 1+, Stomatocytes 1+, PT 11.0, INR 0.98, APTT 26.2, Sodium 153 H*, Potassium 4.2, Chloride 112 H, Carbon Dioxide 27, Anion Gap 18.2 H, BUN 51 H, Creatinine 0.80, Estimated GFR 73, Est GFR ( Amer) 89, Glucose 602 H*, Calcium 10.2, Phosphorus 5.6 H, Magnesium 2.6 H, Total Bilirubin 0.9, AST 21, ALT 23, Alkaline Phosphatase 97, Troponin I 0.01, Total Protein 8.1, Albumin 4.2, Globulin 3.9 H, Albumin/Globulin Ratio 1.1, Lipase 80, TSH 1.14, Thyroxine (T4) 10.2, Acetone Level Small 12/19/23 14:16: VBG pH 7.35, VBG pCO2 45.5, VBG pO2 60.3 H, VBG HCO3 24.7, VBG Total CO2 26.1, VBG O2 Saturation 89.6 H, VBG Base Excess -0.9, VBG Lactic Acid 4.0 H 12/19/23 14:25: Urine Color Yellow, Urine Appearance Clear, Urine pH 5.5, Ur Specific [place] >= 1.030, Urine Protein Trace, Urine Glucose (UA) 3+, Urine Ketones 3+, Urine Blood Negative, Urine Nitrate Positive, Urine Bilirubin 1+ A, Urine Urobilinogen 1.0, Ur Leukocyte Esterase Negative, Urine RBC Occasional, Urine WBC Occasional, Ur Squamous Epith Cells Occasional, Urine Bacteria 3+ 12/19/23 18:25: Ammonia < 9 L, Troponin I 0.02 I & O for Last 24 hours: Intake & Output 12/16/23 12/17/23 12/18/23 12/19/23 23:59 23:59 23:59 23:59 Weight 65.317 kg Constitutional Constitutional: mild distress, chronically ill appearing and obtunded *Routine HEENT Exam Head: Present normocephalic Eye: Present EOMI and PERRL ENT: Present mucous membranes moist *Routine Neck Exam Neck: Present supple; Absent lymphadenopathy *Routine Respiratory Exam Respiratory: Present CTA bilaterally; Absent rhonchi, wheezes or crackles *Routine Cardiovascular Exam Cardiovascular: Present RRR *Routine Abdominal Exam Abdominal: Present soft and normoactive bowel sounds; Absent tenderness *Routine Rectal Exam Rectal:: deferred *Routine Genitalia Exam Genitalia:: deferred *Routine Extremities Exam Extremities: Absent cyanosis, clubbing or edema Comments: Legs stiff *Routine Skin Exam Skin: Present intact and warm; Absent rash *Routine Neurological Exam Neurological: Present altered mental status; Absent moving all extremities Comments: Not follow commands. Opens eyes spontaneously. No verbal response. No withdrawal from pain. GCS of 6 (E4, V1, M1) Assessment and Plan *Assessment and plan (1) Sepsis: Status: Acute Category: Medical Code(s): A41.9 - Sepsis, unspecified organism (2) UTI (urinary tract infection): Status: Acute Category: Medical Code(s): N39.0 - Urinary tract infection, site not specified (3) Starvation ketoacidosis: Status: Acute Category: Medical Code(s): T73.0XXA - Starvation, initial encounter; E87.29 - Other acidosis (4) Hyperglycemia: Status: Acute Category: Medical Code(s): R73.9 - Hyperglycemia, unspecified (5) Dehydration: Status: Acute Category: Medical Code(s): E86.0 - Dehydration (6) Hypernatremia: Status: Acute Category: Medical Code(s): E87.0 - Hyperosmolality and hypernatremia (7) Early onset Alzheimer dementia: Status: Chronic Category: Medical Code(s): G30.0 - Alzheimer's disease with early onset; F02.80 - Dementia in other diseases classified elsewhere, unspecified severity, without behavioral disturbance, psychotic disturbance, mood disturbance, and anxiety (8) Functional quadriplegia: Status: Acute Category: Medical Code(s): R53.2 - Functional quadriplegia Plan 58-year-old female with early onset dementia that appears to be progressing. Long-term resident at skilled nursing. Presented with symptoms of sepsis. Discussed case with ER physician, request admission for antibiotics and further management given severity of illness. I agreed to admit for further treatment. Started on empiric antibiotics. Cultures obtained. at bedside, updated of plan. Ongoing goals of care discussions. Problems addressed as follows: Severe sepsis. Urinary tract infection - presented tachycardic with heart rate in the 140s, tachypneic in the low 20s. Temperature of 100.3 on presentation. Necessitating 2 L nasal cannula oxygen. White count of 16.8k, urine grossly abnormal with positive nitrates, 3+ bacteria. Organ dysfunction with sodium 153, BUN elevated 51. Glucose elevated at 600. -Initiated on vancomycin and Zosyn. Continue Zosyn 3.375 g IV every 8 hours. Monitoring for toxicity with Vanco and Zosyn combo -Tylenol 650 mg p.o. every 4 hours as needed for fever -Blood and urine cultures pending - Repeat CBC, CMP, magnesium ordered for the morning. Hyperglycemia/diabetes Starvation ketoacidosis -Sliding scale insulin with fingersticks every 6 hours. Goal glucose between 150 and 250 -Small acetone. Ketones in her urine. Anion gap of 15. pH normal however. Monitor for improvement in anion gap with correction of hyperglycemia Hypernatremia: Sodium 153. Monitor for improvement with hydration. In the setting of dehydration with elevated BUN, suspect hypovolemic hypernatremia. Repeat BMP every 8 hours. Goal correction 8 to 10 mEq/day. Advanced dementia -Patient has been bedbound for at least 2 years. In skilled nursing for at least 4 years. Decreased p.o. intake. Concern her condition is progressing. Per my personal review of CT of her head, has severe loss of volume with prominent sulci. Concern her condition is entering end-stage Alzheimer's. Will continue goals of care discussion with family. Patient would be an appropriate candidate for hospice if family is amenable. Seizure disorder: Continue valproic acid 500 mg twice daily and brivaracetam 100 mg p.o. twice daily Functional quadriplegic: Complicates all aspects of her care. Secondary to her advanced dementia. Dependent on others for all ADLs including nutritional intake DNR N.p.o. except for meds Lovenox 40 mg subcu daily
[2023-12-19 20:32] LABS: Troponin I 0.02 ng/ml (0.00-0.034)
[2023-12-19 21:16] LABS: POC Glucose,Bedside 375 (70-110)
[2023-12-19] MEDS: humaLOG 100 UNITS/ML 10ML VIAL (SSI) SQ (21:17)
[2023-12-19] MEDS: LACTATED RINGERS 1000ML 1,000 ML 100 ML IV (21:17)
[2023-12-19] MEDS: PIPERCILLIN/TAZO 3.375 GM in 0.9 % SODIUM CHLORIDE 50 ML IV (23:19)
[2023-12-19 23:34] LABS: Chloride 121 mmol/L (98-107)
[2023-12-19 23:37] LABS: Blood Urea Nitrogen 37 mg/dl (7-17); Creatinine Clearance Estimated 103 mL/min (50-200); Estimated Glomerular Filt Rate 102 ml/min (>60); GFR (African American) 123 ML/MIN (>60)
[2023-12-19 23:38] LABS: Anion Gap 13.9 mEq/L (5-15); Calcium 9.3 mg/dl (8.4-10.2); Carbon Dioxide 25 mmol/L (22.0-30.0); Glucose 395 mg/dl (74-100)
[2023-12-19 23:45] LABS: Potassium 2.9 mmoL/L (3.5-5.1); Sodium 157 mmol/L (136-145)
[2023-12-20] VITALS (9 sets, daily range): BP systolic 140–163; BP diastolic 79–100; PULSE 79–127; RESP 16–18; TEMP 36.7–37.4; O2SAT 90–100; BMI 29.2
[2023-12-20] MEDS: 0.45% NaCl w/20mEq KCL 1,000 ML 100 ML IV ×2 (00:03→09:31)
[2023-12-20] MEDS: KCl 20mEq/100ml 100 ML 50 MEQ IV ×4 (00:51→06:48)
--- NOTE | 2023-12-20 04:46 | PC.NURSE ---
Patient has had no issues this shift. Family has remained at bedside through the night. She was tachy in the 120-130s provider was notified and he was okay with that. Patient fluids were switched multiple times this shift to help control her electrolytes. and Electrolyte protocol was placed and followed. no other issues.
[2023-12-20] MEDS: PIPERCILLIN/TAZO 3.375 GM in 0.9 % SODIUM CHLORIDE 50 ML IV ×3 (06:04→22:09)
[2023-12-20] MEDS: humaLOG 100 UNITS/ML 10ML VIAL (SSI) SQ ×3 (06:04→21:02)
[2023-12-20 06:06] LABS: POC Glucose,Bedside 210 (70-110)
[2023-12-20 07:33] LABS: Basophils # 0.1 K/mm3 (0-0.2); Basophils % 0.6 % (0.1-2.0); Eosinophils # 0.4 K/mm3 (0.0-0.4); Eosinophils % 2.5 % (0.1-12.0); Hematocrit 46.1 % (37.0-47.0); Lymphocytes # 2.3 K/mm3 (0.7-4.5); Lymphocytes % 16.4 % (10-50); Mean Corpuscular HGB Conc 31.2 g/dL (31.8-35.4); Mean Corpuscular Hemoglobin 26.8 pg (27.0-31.2); Mean Corpuscular Volume 86.1 fl (81-99); Mean Platelet Volume 7.6 fl (7.4-10.4); Monocytes # 0.6 K/mm3 (0.1-1.0); Monocytes % 4.4 % (1.7-9.3); Neutrophils # 10.6 K/mm3 (1.8-7.8); Platelet Count 288 K/mm3 (142-424); Red Blood Count 5.35 M/mm3 (4.20-5.40); Red Cell Distribution Width 15.1 % (11.5-17.5); White Blood Count 13.9 K/mm3 (4.8-10.8)
[2023-12-20 07:43] LABS: Hemoglobin 14.4 g/dL (12.2-16.2)
[2023-12-20 07:48] LABS: Alanine Aminotransferase 17 U/L (12-78); Albumin Level 3.3 g/dl (3.5-5.0); Albumin/Globulin Ratio 1.1 (1.1-1.8); Alkaline Phosphatase 70 U/L (38-126); Anion Gap 9.3 mEq/L (5-15); Aspartate Amino Transferase 23 U/L (14-36); Bilirubin,Total 0.7 mg/dl (0.2-1.3); Blood Urea Nitrogen 35 mg/dl (7-17); Carbon Dioxide 26 mmol/L (22.0-30.0); Chloride 124 mmol/L (98-107); Creatinine Clearance Estimated 80 mL/min (50-200); Estimated Glomerular Filt Rate 73 ml/min (>60); GFR (African American) 89 ML/MIN (>60); Glucose 279 mg/dl (74-100); Potassium 4.3 mmoL/L (3.5-5.1); Total Protein,Serum 6.3 g/dl (6.3-8.2)
--- NOTE | 2023-12-20 07:52 | EXP.PHA.CONS ---
Pharmacy Consult Date: 12/20/23 Time: 07:54 Referring provider: DR CALDERÓN Reason for Consult:: VANCOMYCIN DOSING CONSULT Allergies Allergy/AdvReac Type Severity Reaction Status Date / Time peach Allergy Rash Verified 12/20/23 07:23 Home Medications ?Medication ?Instructions ?Recorded ?Confirmed ?Type blood sugar diagnostic #10 ea 07/31/19 01/14/21 History blood-glucose meter, wireless #1 ea 07/31/19 01/14/21 History (Contour Next Link kit) pen needle, diabetic 32 gauge x #10 ea 07/31/19 01/14/21 History acetaminophen 500 mg tablet 500 mg PO Q6H PRN Pain, Mild 02/29/20 12/20/23 History (Tylenol Extra Strength) brivaracetam 10 mg/mL oral 100 mg (10 mL) PO BID #600 mL 05/15/22 12/20/23 Rx solution (Briviact) divalproex 125 mg capsule,delayed 250 mg PO HS 12/20/23 12/20/23 History release sprinkle famotidine 40 mg tablet 40 mg PO HS 12/20/23 12/20/23 History hyoscyamine sulfate 0.125 mg tablet 0.125 mg PO BID 12/20/23 12/20/23 History metformin 500 mg tablet 500 mg PO DAILY 12/20/23 12/20/23 History sitagliptin phosphate 100 mg 100 mg PO DAILY 12/20/23 12/20/23 History tablet (Januvia) New Prescriptions to Start Prescriptions: Height: 1.52 m Weight: 67.54 kg Laboratory Results:: Laboratory Results - last 24 hr 12/19/23 14:15: WBC 16.8 H, RBC 6.50 H, Hgb 17.1 H, Hct 55.5 H, MCV 85.4, MCH 26.3 L, MCHC 30.8 L, RDW 14.9, Plt Count 389, MPV 8.3, Neut % (Auto) 76.4, Lymph % (Auto) 15.1, [place] % (Auto) 6.1, Eos % (Auto) 1.1, Baso % (Auto) 1.3, Neut # (Auto) 12.9 H, Lymph # (Auto) 2.6, [place] # (Auto) 1.0, Eos # (Auto) 0.2, Baso # (Auto) 0.2, Total Counted 100, Neutrophils % (Manual) 73, Lymphocytes % (Manual) 22, Monocytes % (Manual) 4, Eosinophils % (Manual) 1, Platelet Estimate Normal, Hypochromasia 1+, Poikilocytosis 1+, Target Cells 1+, Stomatocytes 1+, PT 11.0, INR 0.98, APTT 26.2, Sodium 153 H*, Potassium 4.2, Chloride 112 H, Carbon Dioxide 27, Anion Gap 18.2 H, BUN 51 H, Creatinine 0.80, Estimated GFR 73, Est GFR ( Amer) 89, Glucose 602 H*, Calcium 10.2, Phosphorus 5.6 H, Magnesium 2.6 H, Total Bilirubin 0.9, AST 21, ALT 23, Alkaline Phosphatase 97, Troponin I 0.01, Total Protein 8.1, Albumin 4.2, Globulin 3.9 H, Albumin/Globulin Ratio 1.1, Lipase 80, TSH 1.14, Thyroxine (T4) 10.2, Acetone Level Small 12/19/23 14:16: VBG pH 7.35, VBG pCO2 45.5, VBG pO2 60.3 H, VBG HCO3 24.7, VBG Total CO2 26.1, VBG O2 Saturation 89.6 H, VBG Base Excess -0.9, VBG Lactic Acid 4.0 H 12/19/23 14:25: Urine Color Yellow, Urine Appearance Clear, Urine pH 5.5, Ur Specific [place] >= 1.030, Urine Protein Trace, Urine Glucose (UA) 3+, Urine Ketones 3+, Urine Blood Negative, Urine Nitrate Positive, Urine Bilirubin 1+ A, Urine Urobilinogen 1.0, Ur Leukocyte Esterase Negative, Urine RBC Occasional, Urine WBC Occasional, Ur Squamous Epith Cells Occasional, Urine Bacteria 3+ 12/19/23 18:25: Ammonia < 9 L, Troponin I 0.02 12/19/23 20:00: Lactate 2.0, Troponin I 0.02 12/19/23 21:05: POC Glucose 375 H* 12/19/23 23:05: Sodium 157 H*, Potassium 2.9 L* D, Chloride 121 H, Carbon Dioxide 25, Anion Gap 13.9, BUN 37 H D, Creatinine 0.60 D, Estimated Creat Clear 103, Estimated GFR 102, Est GFR ( Amer) 123 D, Glucose 395 H D, Calcium 9.3 12/20/23 05:58: POC Glucose 210 H 12/20/23 07:14: WBC 13.9 H, RBC 5.35, Hgb 14.4 D, Hct 46.1, MCV 86.1, MCH 26.8 L, MCHC 31.2 L, RDW 15.1, Plt Count 288 D, MPV 7.6, Neut % (Auto) 76.0, Lymph % (Auto) 16.4, [place] % (Auto) 4.4, Eos % (Auto) 2.5, Baso % (Auto) 0.6, Neut # (Auto) 10.6 H, Lymph # (Auto) 2.3, [place] # (Auto) 0.6, Eos # (Auto) 0.4, Baso # (Auto) 0.1 Medical History: Medical History (Updated 12/19/23 @ 22:57 by Nikita Calderón MD) Diabetes Depression Epileptic seizures Dementia Assessment and Plan Assessment and plan all Dx Assessment and Plan for all problems:: Pharmacokinetic dosing service Objective: Age: 58 yo Serum creatinine: 0.6 mg/dL Height: 59.8 Inches Weight (kg): 67.54 Diagnosis: SEPSIS Assessment: IBW (kg): 45.35 Dosing wt(kg): 67.54 Estimated Creatinine clearance (ml/min): 71.4 CRCL method: Cockcroft and Gault using ibw(default). Drug selected: Vancomycin Loading dose (mg): 2250 MG Vd (liters): 47.3 (factor used: 0.7 L/kg) [place] (hr-1): 0.064 Half life (hrs): 10.83 CLvanco=?? 3.027 L/hr Recommended dose: 1250 mg Interval: 18 hrs Infusion time (hrs): 2.0 Predicted peak (mcg/mL): 36.3 Predicted trough (mcg/mL): 13.04 Total body weight is being used for vancomycin dosing. Recommendations: Give Vancomycin 1250 mg q 18 hrs with an expected Cpeak of 36.3 mcg/ml and an expected Ctrough of 13.04 mcg/ml AUC 0-24 /BERTIN Data: BERTIN 0.5 mcg/mL:?? AUC/BERTIN:? 1101.2 BERTIN 1.0 mcg/mL:?? AUC/BERTIN:? 550.6 --------- BERTIN 1.5 mcg/mL:?? AUC/BERTIN:? 367.1 BERTIN 2.0 mcg/mL:?? AUC/BERTIN:? 275.3 Thank you for the consult
[2023-12-20 08:02] LABS: Sodium 155 mmol/L (136-145)
--- NOTE | 2023-12-20 08:08 | SW/DCPLANNER ---
Addendum entered by Maureen Torres 12/21/23 12:40: I have updated Samaria w/ [facility] that patient will return today and Hospice will admit. Addendum entered by Maureen Torres 12/20/23 14:55: Patient's family expressed an interest in comfort care at this time. I have faxed patient information to Katarina w/ Hospice. Katarina stated that should would sent a nurse to speak w/ the family. Original Note: This patient currently resides at [facility] level of care. I will continue to follow up w/ Samaria at [facility] until patient is medically stable for discharge. Discharge date is unknown at this time.
--- NOTE | 2023-12-20 08:13 | HMH.PHAINT1 ---
Pharmacy Intervention Comments: Home medications verified using list from pharmacy.
[2023-12-20] MEDS: FAMOTIDINE 20MG/2ML VIAL 20 MG IV ×2 (09:31→21:02)
[2023-12-20] MEDS: ENOXAPARIN 40MG/0.4ML SYRINGE 40 MG SQ (09:31)
--- NOTE | 2023-12-20 10:23 | DIET.NUTRFU ---
reviewed diet order with nursing lakshmi, nectar is her baseline at senior living according to . Currently not alert enough to take oral nutrition. If continues may need to address tubefeeding wishes, she was admitted with starvation ketoacidosis. Nursing reported she hadnet eaten for approx 3 days already.
[2023-12-20] MEDS: VALPROIC ACID 250 MG/5 ML SOL UDC 500 MG PO (10:54)
[2023-12-20 11:15] LABS: POC Glucose,Bedside 221 (70-110)
[2023-12-20] MEDS: levETIRAcetam 1,000 MG in 0.9 % SODIUM CHLORIDE 100 ML 210 MG IV ×2 (12:19→23:24)
[2023-12-20] MEDS: VANCOMYCIN HCL 1,250 MG in 0.9 % SODIUM CHLORIDE 250 ML 125 MG IV (12:52)
[2023-12-20] MEDS: SODIUM CHLORIDE 0.45 % 1,000 ML 100 ML IV (15:01)
[2023-12-20 17:02] LABS: POC Glucose,Bedside 191 (70-110)
[2023-12-20] MEDS: VALPROIC ACID 250 MG in 0.9 % SODIUM CHLORIDE 100 ML 105 MG IV (21:02)
--- NOTE | 2023-12-20 23:40 | P.PN_ITS ---
Subjective *Date: 12/21/23 *Time: 00:10 Interval history: Patient is resting comfortably in bed. Exam Data for Last 24 hours Vital signs and Labs for Last 24 Hours: Temp Pulse Resp BP Pulse Ox O2 Del Method O2 Flow Rate 98.4 F 109 H 16 154/79 H 90 L Nasal Cannula 2 12/20/23 19:56 12/20/23 20:00 12/20/23 19:56 12/20/23 19:56 12/20/23 20:00 12/20/23 21:00 12/20/23 21:00 Laboratory Results - last 24 hr 12/19/23 23:05: Sodium 157 H*, Potassium 2.9 L* D, Chloride 121 H, Carbon Dioxide 25, Anion Gap 13.9, BUN 37 H D, Creatinine 0.60 D, Estimated Creat Clear 103, Estimated GFR 102, Est GFR ( Amer) 123 D, Glucose 395 H D, Calcium 9.3 12/20/23 05:58: POC Glucose 210 H 12/20/23 07:14: WBC 13.9 H, RBC 5.35, Hgb 14.4 D, Hct 46.1, MCV 86.1, MCH 26.8 L, MCHC 31.2 L, RDW 15.1, Plt Count 288 D, MPV 7.6, Neut % (Auto) 76.0, Lymph % (Auto) 16.4, [place] % (Auto) 4.4, Eos % (Auto) 2.5, Baso % (Auto) 0.6, Neut # (Auto) 10.6 H, Lymph # (Auto) 2.3, [place] # (Auto) 0.6, Eos # (Auto) 0.4, Baso # (Auto) 0.1, Sodium 155 H*, Potassium 4.3 D, Chloride 124 H, Carbon Dioxide 26, Anion Gap 9.3, BUN 35 H, Creatinine 0.80 D, Estimated Creat Clear 80, Estimated GFR 73, Est GFR ( Amer) 89 D, Glucose 279 H D, Calcium 9.0, Total Bilirubin 0.7, AST 23, ALT 17 D, Alkaline Phosphatase 70, Total Protein 6.3, Albumin 3.3 L D, Globulin 3.0, Albumin/Globulin Ratio 1.1 12/20/23 11:08: POC Glucose 221 H 12/20/23 16:52: POC Glucose 191 H I & O for Last 24 hours: Intake & Output 12/17/23 12/18/23 12/19/23 12/20/23 23:59 23:59 23:59 23:59 Intake Total 220 / 220 Output Total 650 / 650 Balance -430 / -430 Weight 65.317 kg 67.54 kg Microbiology Reports for the Last 24 Hours: Microbiology 12/19/23 14:25 Blood Blood Culture - Preliminary NO GROWTH AFTER 24 HOURS 12/19/23 14:15 Blood Blood Culture - Preliminary NO GROWTH AFTER 24 HOURS 12/19/23 14:16 Urine,Catheterized Urine Culture - Preliminary Constitutional Comments: Constitutional Constitutional: No distress, chronically ill appearing and obtunded *Routine HEENT Exam Head: Present normocephalic Eye: Present EOMI and PERRL ENT: Present mucous membranes moist *Routine Neck Exam Neck: Present supple; Absent lymphadenopathy *Routine Respiratory Exam Respiratory: Present CTA bilaterally; Absent rhonchi, wheezes or crackles *Routine Cardiovascular Exam Cardiovascular: Present RRR *Routine Abdominal Exam Abdominal: Present soft and normoactive bowel sounds; Absent tenderness *Routine Rectal Exam Rectal:: deferred *Routine Genitalia Exam Genitalia:: deferred *Routine Extremities Exam Extremities: Absent cyanosis, clubbing or edema Comments: Legs stiff *Routine Skin Exam Skin: Present intact and warm; Absent rash *Routine Neurological Exam Neurological: Present altered mental status; Absent moving all extremities Assessment and Plan *Assessment and plan (1) Sepsis: Status: Acute Category: Medical Code(s): A41.9 - Sepsis, unspecified organism (2) UTI (urinary tract infection): Status: Acute Category: Medical Code(s): N39.0 - Urinary tract infection, site not specified (3) Starvation ketoacidosis: Status: Acute Category: Medical Code(s): T73.0XXA - Starvation, initial encounter; E87.29 - Other acidosis (4) Hyperglycemia: Status: Acute Category: Medical Code(s): R73.9 - Hyperglycemia, unspecified (5) Dehydration: Status: Acute Category: Medical Code(s): E86.0 - Dehydration (6) Hypernatremia: Status: Acute Category: Medical Code(s): E87.0 - Hyperosmolality and hypernatremia (7) Early onset Alzheimer dementia: Status: Chronic Category: Medical Code(s): G30.0 - Alzheimer's disease with early onset; F02.80 - Dementia in other diseases classified elsewhere, unspecified severity, without behavioral disturbance, psychotic disturbance, mood disturbance, and anxiety (8) Functional quadriplegia: Status: Acute Category: Medical Code(s): R53.2 - Functional quadriplegia Plan 58-year-old female with early onset dementia that appears to be progressing. Long-term resident at long-term. Presented with symptoms of sepsis. Discussed case with ER physician, request admission for antibiotics and further management given severity of illness. I agreed to admit for further treatment. Started on empiric antibiotics. Cultures obtained. at bedside, updated of plan. Ongoing goals of care discussions. Problems addressed as follows: Severe sepsis. Urinary tract infection - presented tachycardic with heart rate in the 140s, tachypneic in the low 20s. Temperature of 100.3 on presentation. Necessitating 2 L nasal cannula oxygen. White count of 16.8k, urine grossly abnormal with positive nitrates, 3+ bacteria. Organ dysfunction with sodium 153, BUN elevated 51. Glucose elevated at 600. -Initiated on vancomycin and Zosyn. Continue Zosyn 3.375 g IV every 8 hours. Monitoring for toxicity with Vanco and Zosyn combo -Tylenol 650 mg p.o. every 4 hours as needed for fever - WBC improved to 13.9 today. - Follow-up urine, blood cultures. - Repeat CBC, CMP, magnesium ordered for the morning. - Spoke with , [id number] extensively today. They are desiring hospice care. Hospice care nurse came to evaluate patient today, will start hospice care once patient reaches back to nursing facility. Plan to withdraw care tomorrow and discharge to nursing facility to start hospice care. Hyperglycemia/diabetes Starvation ketoacidosis -Sliding scale insulin with fingersticks every 6 hours. Goal glucose between 150 and 250 -Small acetone. Ketones in her urine. Anion gap of 15. pH normal however. Monitor for improvement in anion gap with correction of hyperglycemia Hypernatremia: Sodium 153. Monitor for improvement with hydration. In the setting of dehydration with elevated BUN, suspect hypovolemic hypernatremia. Repeat BMP every 8 hours. Goal correction 8 to 10 mEq/day. - Currently on 1/2 normal saline maintenance fluids. Initial sodium pseudohyponatremia in the setting of hyperglyemia. Advanced dementia -Patient has been bedbound for at least 2 years. In long-term for at least 4 years. Decreased p.o. intake. Concern her condition is progressing. Per my personal review of CT of her head, has severe loss of volume with prominent sulci. Concern her condition is entering end-stage Alzheimer's. Seizure disorder: Continue valproic acid 500 mg twice daily and brivaracetam 100 mg p.o. twice daily Functional quadriplegic: Complicates all aspects of her care. Secondary to her advanced dementia. Dependent on others for all ADLs including nutritional intake DNR N.p.o. except for meds Lovenox 40 mg subcu daily
[2023-12-21] VITALS: BP 144/90; PULSE 104; PULSE 109; RESP 16; TEMP 37.3; O2SAT 100
[2023-12-21] MEDS: SODIUM CHLORIDE 0.45 % 1,000 ML 100 ML IV ×2 (01:21→11:00)
[2023-12-21 02:26] LABS: POC Glucose,Bedside 243 (70-110)
[2023-12-21] MEDS: VALPROIC ACID 250 MG in 0.9 % SODIUM CHLORIDE 100 ML 105 MG IV ×3 (02:43→14:13)
[2023-12-21 04:00] VITALS: BP 143/88; PULSE 101; PULSE 96; RESP 16; TEMP 37.1; O2SAT 94; BMI 29.5
[2023-12-21] MEDS: humaLOG 100 UNITS/ML 10ML VIAL (SSI) SQ (05:05)
[2023-12-21 05:27] LABS: POC Glucose,Bedside 180 (70-110)
[2023-12-21] MEDS: PIPERCILLIN/TAZO 3.375 GM in 0.9 % SODIUM CHLORIDE 50 ML IV ×2 (06:36→14:13)
[2023-12-21 06:54] LABS: Basophils # 0.1 K/mm3 (0-0.2); Basophils % 0.7 % (0.1-2.0); Eosinophils # 0.3 K/mm3 (0.0-0.4); Eosinophils % 3.6 % (0.1-12.0); Hematocrit 39.9 % (37.0-47.0); Lymphocytes # 2.8 K/mm3 (0.7-4.5); Lymphocytes % 31.3 % (10-50); Mean Corpuscular HGB Conc 30.9 g/dL (31.8-35.4); Mean Corpuscular Hemoglobin 26.1 pg (27.0-31.2); Mean Corpuscular Volume 84.4 fl (81-99); Mean Platelet Volume 8.1 fl (7.4-10.4); Monocytes # 0.4 K/mm3 (0.1-1.0); Monocytes % 4.6 % (1.7-9.3); Neutrophils # 5.3 K/mm3 (1.8-7.8); Neutrophils % 59.9 % (37.0-80.0); Platelet Count 250 K/mm3 (142-424); Red Blood Count 4.73 M/mm3 (4.20-5.40); Red Cell Distribution Width 15.1 % (11.5-17.5); White Blood Count 8.8 K/mm3 (4.8-10.8)
[2023-12-21 07:04] LABS: Albumin Level 2.9 g/dl (3.5-5.0); Chloride 118 mmol/L (98-107); Potassium 3.8 mmoL/L (3.5-5.1)
[2023-12-21 07:06] LABS: Blood Urea Nitrogen 26 mg/dl (7-17); Creatinine Clearance Estimated 107 mL/min (50-200); Estimated Glomerular Filt Rate 102 ml/min (>60); GFR (African American) 123 ML/MIN (>60)
[2023-12-21 07:07] LABS: Alanine Aminotransferase 7 U/L (12-78); Alkaline Phosphatase 59 U/L (38-126); Anion Gap 9.8 mEq/L (5-15); Aspartate Amino Transferase 16 U/L (14-36); Bilirubin,Total 0.5 mg/dl (0.2-1.3); Calcium 8.4 mg/dl (8.4-10.2); Carbon Dioxide 27 mmol/L (22.0-30.0); Globulin 2.8 g/dL (1.3-3.2); Glucose 204 mg/dl (74-100); Total Protein,Serum 5.7 g/dl (6.3-8.2)
[2023-12-21 07:42] LABS: Sodium 151 mmol/L (136-145)
[2023-12-21 08:00] VITALS: BP 160/88; PULSE 100; RESP 19; TEMP 36.4; O2SAT 100
[2023-12-21] MEDS: ENOXAPARIN 40MG/0.4ML SYRINGE 40 MG SQ (08:07)
[2023-12-21] MEDS: FAMOTIDINE 20MG/2ML VIAL 20 MG IV (08:08)
[2023-12-21] MEDS: SODIUM CHLORIDE 0.9% 10ML VIAL 10 ML IV (08:08)
[2023-12-21 09:22] LABS: Hemoglobin 12.2 g/dL (12.2-16.2)
[2023-12-21 11:09] LABS: POC Glucose,Bedside 147 (70-110)
[2023-12-21 12:00] VITALS: BP 150/86; PULSE 100; PULSE 98; RESP 17; TEMP 36.5; O2SAT 95
[2023-12-21] MEDS: levETIRAcetam 1,000 MG in 0.9 % SODIUM CHLORIDE 100 ML 210 MG IV (12:06)
[2023-12-21] MEDS: VANCOMYCIN HCL 1,250 MG in 0.9 % SODIUM CHLORIDE 250 ML 125 MG IV (12:06)
--- NOTE | 2023-12-21 13:06 | P.DS_ITS ---
General Admission date:: 12/19/23 Discharge date: 12/21/23 HPI HPI HPI: Ms. Betancourt is 58-year-old female with history of early onset Alzheimer's dementia, myoclonus, diabetes, long-term resident at [facility] for over 4 years. She presented to the ER because of concern for worsening mental status, decreased p.o. intake. She reportedly has not eaten anything or taken any p.o. liquids in over 2 days. Family concerned that patient's mental status is different. More lethargic. EMS noted that she was unresponsive and route. Glucose initially on evaluation by EMS elevated greater than 400. Would open eyes spontaneously but no meaningful eye contact. Not following commands. No verbal response. On workup in the ER, patient meeting sepsis criteria with tachycardia, gross lab abnormalities with hypernatremia, leukocytosis. Urine grossly abnormal concerning for UTI. Medicine consulted for admission for sepsis, dehydration, hyperglycemia secondary to UTI. After arrival to the floor. Case discussed with (Osei) at bedside. Patient made DNR. States that she was diagnosed approximately 6 years ago with early onset Alzheimer's. Her CT on arrival to the ER shows severe loss of brain volume and prominent sulci. Findings grossly abnormal for age. Discussed with her progression. States he understands that her dementia will progress. He was counseled by neurology years ago that she would eventually forget how to eat. Expressed concern that she may be at this point. Discussed briefly the thought of hospice pending her response to treatment. States he would like to think about this and is open to considering it. Denies any known shortness of breath, tremor, mago fever. States she just has been less responsive and not eating and this concerned him. Hospital Course Hospital Course Hospital Course: 58-year-old female with early onset dementia that appears to be progressing. Long-term resident at [facility]. Presented with symptoms of sepsis. Discussed case with ER physician, request admission for antibiotics and further management given severity of illness. I agreed to admit for further treatment. Started on empiric antibiotics. Cultures obtained. Cultures remain negative at time of discharge. Patient sodium has improved with IV fluids. Extensive goals of care discussion, decision to transition to hospice care. Stable to discharge back to [facility] for further management. Problems addressed as follows: Severe sepsis. Urinary tract infection - presented tachycardic with heart rate in the 140s, tachypneic in the low 20s. Temperature of 100.3 on presentation. Necessitating 2 L nasal cannula oxygen. White count of 16.8k, urine grossly abnormal with positive nitrates, 3+ bacteria. Organ dysfunction with sodium 153, BUN elevated 51. Glucose elevated at 600. Initiated on vancomycin and Zosyn. Blood cultures and urine cultures obtained. Blood cultures remain negative. Urine not growing anything as of yet. White count has normalized to 8.8 by day of discharge. Will continue to follow blood culture and urine culture. Transition to Augmentin to complete 5 days of antibiotics due to previous culture with E. coli sensitive to amoxicillin. Will transition to hospice. Discharge back to [facility]. At family's request, will place catheter for comfort. Hyperglycemia/diabetes Starvation ketoacidosis -Sliding scale insulin with fingersticks every 6 hours. Goal glucose between 150 and 250. Initially had ketones, suspect secondary to starvation in conjunction with her diabetes. Has done well with insulin during admission. Continue low-dose insulin glargine nightly to prevent further hyperglycemia. Hypernatremia: Sodium 153 on admission, increased to 157 with normalization of glucose. Suspect there was a component of falsely depressed sodium because of elevated glucose on admission. Improving with half-normal saline administration. Sodium 151 on morning of discharge. Encourage p.o. free water. Anticipate however that patient will not be able to maintain her fluid needs with oral intake. In light of goals of care, encourage comfort feeds. Counseled family that her sodium will likely go up as her intake decreases and I anticipate progression of electrolyte disturbances and kidney dysfunction with dehydration during the dying process. Advanced dementia -Patient has been bedbound for at least 2 years. In [facility] for at least 4 years. Decreased p.o. intake. Concern her condition is progressing. Per my personal review of CT of her head, has severe loss of volume with prominent sulci. Concern her condition is entering end-stage Alzheimer's. Admitted to hospice for end-stage Alzheimer's. Seizure disorder: Continue valproic acid 500 mg twice daily and brivaracetam 100 mg p.o. twice daily Functional quadriplegic: Complicates all aspects of her care. Secondary to her advanced dementia. Dependent on others for all ADLs including nutritional intake Total time spent on discharge 32 minutes in counseling, documentation, chart review, and direct care with patient. Exam Data for Last 24 hours Vital signs and Labs for Last 24 Hours: Temp Pulse Resp BP Pulse Ox O2 Del Method O2 Flow Rate 97.5 F L 100 H 19 160/88 H 100 Nasal Cannula 2 12/21/23 08:00 12/21/23 08:00 12/21/23 08:00 12/21/23 08:00 12/21/23 08:00 12/21/23 11:00 12/21/23 11:00 Laboratory Results - last 24 hr 12/20/23 16:52: POC Glucose 191 H 12/20/23 20:52: POC Glucose 243 H 12/21/23 05:03: POC Glucose 180 H 12/21/23 05:56: WBC 8.8 D, RBC 4.73, Hgb 12.2 D, Hct 39.9, MCV 84.4, MCH 26.1 L, MCHC 30.9 L, RDW 15.1, Plt Count 250, MPV 8.1, Neut % (Auto) 59.9, Lymph % (Auto) 31.3, Brantley % (Auto) 4.6, Eos % (Auto) 3.6, Baso % (Auto) 0.7, Neut # (Auto) 5.3, Lymph # (Auto) 2.8, Brantley # (Auto) 0.4, Eos # (Auto) 0.3, Baso # (Auto) 0.1, Sodium 151 H*, Potassium 3.8, Chloride 118 H, Carbon Dioxide 27, Anion Gap 9.8, BUN 26 H D, Creatinine 0.60 D, Estimated Creat Clear 107, Estimated GFR 102, Est GFR ( Amer) 123 D, Glucose 204 H D, Calcium 8.4, Total Bilirubin 0.5, AST 16 D, ALT 7 L D, Alkaline Phosphatase 59, Total Protein 5.7 L, Albumin 2.9 L D, Globulin 2.8, Albumin/Globulin Ratio 1.0 L 12/21/23 10:45: POC Glucose 147 H I & O for Last 24 hours: Intake & Output 12/18/23 12/19/23 12/20/23 12/21/23 23:59 23:59 23:59 23:59 Intake Total 220 / 470 1914 / 1914 Output Total 650 / 650 250 / 250 Balance -430 / -180 1664 / 1664 Weight 65.317 kg 67.54 kg 68.175 kg Microbiology Reports for the Last 24 Hours: Microbiology 12/19/23 14:16 Urine,Catheterized Urine Culture - Preliminary 12/19/23 14:25 Blood Blood Culture - Preliminary NO GROWTH AFTER 24 HOURS 12/19/23 14:15 Blood Blood Culture - Preliminary NO GROWTH AFTER 24 HOURS Constitutional Constitutional: no acute distress, obese, chronically ill appearing and obtunded *Routine HEENT Exam Head: Present normocephalic Eye: Present EOMI and PERRL ENT: Present mucous membranes moist *Routine Neck Exam Neck: Present supple; Absent lymphadenopathy *Routine Respiratory Exam Respiratory: Present CTA bilaterally; Absent respiratory distress, rhonchi, wheezes or crackles *Routine Cardiovascular Exam Cardiovascular: Present RRR *Routine Abdominal Exam Abdominal: Present soft and normoactive bowel sounds; Absent tenderness *Routine Rectal Exam Patient deferred: visual exam *Routine Exam Patient deferred: external exam *Routine Extremities Exam Extremities: Present edema (Anasarca of 1+ globally); Absent cyanosis or clubbing *Routine Skin Exam Skin: Present intact and warm; Absent rash *Routine Neurological Exam Neurological: Present altered mental status; Absent moving all extremities Comments: Opens mouth to feed. Spontaneously opens eyes. No meaningful response to verbal stimuli. Severe progressed dementia Results Data Completed and Pending Labs on day of discharge: Labs from last 24 hours 12/21/23 12/21/23 12/21/23 10:45 05:56 05:03 WBC 8.8 D RBC 4.73 Hgb 12.2 D Hct 39.9 MCV 84.4 MCH 26.1 L MCHC 30.9 L RDW 15.1 Plt Count 250 MPV 8.1 Neut % (Auto) 59.9 Lymph % (Auto) 31.3 Brantley % (Auto) 4.6 Eos % (Auto) 3.6 Baso % (Auto) 0.7 Neut # (Auto) 5.3 Lymph # (Auto) 2.8 Brantley # (Auto) 0.4 Eos # (Auto) 0.3 Baso # (Auto) 0.1 Sodium 151 H* Potassium 3.8 Chloride 118 H Carbon Dioxide 27 Anion Gap 9.8 BUN 26 H D Creatinine 0.60 D Estimated Creat Clear 107 Estimated GFR 102 Est GFR ( Amer) 123 D Glucose 204 H D POC Glucose 147 H 180 H Calcium 8.4 Total Bilirubin 0.5 AST 16 D ALT 7 L D Alkaline Phosphatase 59 Total Protein 5.7 L Albumin 2.9 L D Globulin 2.8 Albumin/Globulin Ratio 1.0 L 12/20/23 12/20/23 20:52 16:52 WBC RBC Hgb Hct MCV MCH MCHC RDW Plt Count MPV Neut % (Auto) Lymph % (Auto) Brantley % (Auto) Eos % (Auto) Baso % (Auto) Neut # (Auto) Lymph # (Auto) Brantley # (Auto) Eos # (Auto) Baso # (Auto) Sodium Potassium Chloride Carbon Dioxide Anion Gap BUN Creatinine Estimated Creat Clear Estimated GFR Est GFR ( Amer) Glucose POC Glucose 243 H 191 H Calcium Total Bilirubin AST ALT Alkaline Phosphatase Total Protein Albumin Globulin Albumin/Globulin Ratio Preliminary micro results at discharge 12/19/23 14:16 Urine Culture - Preliminary Urine,Catheterized 12/19/23 14:25 Blood Culture - Preliminary Blood NO GROWTH AFTER 24 HOURS 12/19/23 14:15 Blood Culture - Preliminary Blood NO GROWTH AFTER 24 HOURS DS: Diagnosis Discharge Diagnosis (1) Sepsis: Status: Acute Code(s): A41.9 - Sepsis, unspecified organism (2) UTI (urinary tract infection): Status: Acute Code(s): N39.0 - Urinary tract infection, site not specified (3) Starvation ketoacidosis: Status: Acute Code(s): T73.0XXA - Starvation, initial encounter; E87.29 - Other acidosis (4) Hyperglycemia: Status: Acute Code(s): R73.9 - Hyperglycemia, unspecified (5) Dehydration: Status: Acute Code(s): E86.0 - Dehydration (6) Hypernatremia: Status: Acute Code(s): E87.0 - Hyperosmolality and hypernatremia (7) Early onset Alzheimer dementia: Status: Chronic Code(s): G30.0 - Alzheimer's disease with early onset; F02.80 - Dementia in other diseases classified elsewhere, unspecified severity, without behavioral disturbance, psychotic disturbance, mood disturbance, and anxiety (8) Functional quadriplegia: Status: Acute Code(s): R53.2 - Functional quadriplegia Meds Home Medications and Allergies Home Medications ?Medication ?Instructions ?Recorded ?Confirmed ?Type blood sugar diagnostic #10 ea 07/31/19 12/21/23 History blood-glucose meter, wireless #1 ea 07/31/19 12/21/23 History (Contour Next Link kit) pen needle, diabetic 32 gauge x #10 ea 07/31/19 12/21/23 History acetaminophen 500 mg tablet 500 mg PO Q6H PRN Pain, Mild 02/29/20 12/20/23 History (Tylenol Extra Strength) brivaracetam 10 mg/mL oral 100 mg (10 mL) PO BID #600 mL 05/15/22 12/20/23 Rx solution (Briviact) divalproex 125 mg capsule,delayed 250 mg PO HS 12/20/23 12/20/23 History release sprinkle famotidine 40 mg tablet 40 mg PO HS 12/20/23 12/20/23 History hyoscyamine sulfate 0.125 mg tablet 0.125 mg PO BID 12/20/23 12/20/23 History sitagliptin phosphate 100 mg 100 mg PO DAILY 12/20/23 12/20/23 History tablet (Januvia) amoxicillin 875 mg-potassium 1 tab PO BID 3 days #6 tabs 12/21/23 Rx clavulanate 125 mg tablet insulin glargine 100 unit/mL (3 10 unit (0.1 mL) SQ HS #3 mL 12/21/23 Rx mL) subcutaneous pen New Prescriptions to Start Prescriptions: amoxicillin-pot clavulanate Nikita Anderson insulin glargine Nikita Anderson Allergies Allergy/AdvReac Type Severity Reaction Status Date / Time peach Allergy Rash Verified 12/20/23 07:23 Discharge Plan Disposition Patient Disposition: Hospice - Medical Facility Condition: Serious Discharge Order Discharge Orders: Discharge Order (Routine); Ordered 12/21/23 Ordered By: Nikita Anderson Follow up Plan Prescriptions/Medication Reconciliation: New amoxicillin-pot clavulanate 875-125 mg tablet 1 tab PO BID 3 Days Qty: 6 0RF insulin glargine 100 unit/mL (3 mL) insulin pen 10 unit SQ HS Qty: 3 0RF Continued acetaminophen [Tylenol Extra Strength] 500 mg tablet 500 mg PO Q6H PRN (Reason: Pain, Mild) Briviact 10 mg/mL solution 100 mg PO BID Qty: 600 3RF famotidine 40 mg tablet 40 mg PO HS hyoscyamine sulfate 0.125 mg tablet 0.125 mg PO BID divalproex 125 mg capsule, delayed rel sprinkle 250 mg PO HS Januvia 100 mg tablet 100 mg PO DAILY Discontinued metformin 500 mg tablet 500 mg PO DAILY cyanocobalamin (vitamin B-12) 1,000 mcg/mL solution 1,000 mcg IM MONTHLY No Action (DME) Contour Next Link Kit See Rx Instructions .ROUTE .MEDSUPPLY Qty: 1 Rx Instructions: As directed (DME) blood sugar diagnostic Strip See Rx Instructions .ROUTE .MEDSUPPLY Qty: 10 Patient Comments: USE DIRECTED 4 TIMES DAILY Rx Instructions: As directed (DME) pen needle, diabetic 32 gauge x 5/32 needle 1 kit .ROUTE .MEDSUPPLY Qty: 10 Rx Instructions: As directed Problem Reconciliation Problems Reviewed?: Yes Patient Discharge Instructions ACTIVITY: Continue current activity DIET: continue same diet Patient Instructions: Urinary Tract Infection, Sepsis, DI for Dehydration -- Adult Print Language: Burmese Providers Primary Care Provider: Tomasz Ceja Admit Provider: Devaughn Lynn Attending Provider: Devaughn Lynn
[2023-12-21 13:34] LABS: Microscopic, Urine URINE MICROSCOPIC (MICROSCOPIC)
[2023-12-21 14:54] LABS: Appearance,Urine CLOUDY (Clear); Bilirubin,Urine Negative (Negative); Blood, Urine 1+ (Negative); Color,Urine YELLOW (Yellow); Glucose,Urine (UA) Negative (Negative); Ketones,Urine 2+ (Negative); Leukocyte Esterase,Urine 2+ (Negative); Nitrate,Urine Negative (Negative); PH,Urine 5.5 (5.0-8.5); Protein,Urine Negative (Negative); Specific Gravity, Urine >= 1.030 (1.005-1.030); Urobilinogen,Urine 0.2 EU/dl (0.2)
[2023-12-21 15:28] LABS: Bacteria,Urine Trace /lpf
== END 2023-12-21 16:26 | disposition hospice, inpatient (51) | DRG 871 ==
LOC: ER 17:24 → 2ND 17:31
PROVIDERS: Internal Medicine Adolescent Medicine; Admitting Provider Student in an Organized Health Care Education/Training Program; Emergency Provider Emergency Medicine; PCP Internal Medicine Adolescent Medicine; Visit Provider Student in an Organized Health Care Education/Training Program
DX: A41.9 Sepsis, unspecified organism (principal); R53.2 Functional quadriplegia; N39.0 Urinary tract infection, site not specified; E87.29 Other acidosis; E87.0 Hyperosmolality and hypernatremia; R65.20 Severe sepsis without septic shock; G30.0 Alzheimer's disease with early onset; Z51.5 Encounter for palliative care; F02.80 Dementia in other diseases classified elsewhere, unspecified severity, without behavioral disturbance, psychotic disturbance, mood disturbance, and anxiety; G40.909 Epilepsy, unspecified, not intractable, without status epilepticus; E11.65 Type 2 diabetes mellitus with hyperglycemia; E86.0 Dehydration; T73.0XXA Starvation, initial encounter; X58.XXXA Exposure to other specified factors, initial encounter
CPT/HCPCS: 36415; 70450; 71045; 80048; 80050; 80053; 81001; 82009; 82140; 82803; 82962; 83605; 83690; 83735; 84100; 84436; 84443; 84484; 85007; 85025; 85610; 85730; 87040; 87086; 87088; 87186; 93005; 99291; J1650; J1953; J2543; J3370; J7030; J7120; S0028